=== PATIENT | female | born 1945 | race Caucasian/White ===

== ENCOUNTER → 2019-12-07 11:20 | Outpatient (BNVA) | payer MEDICARE, MEDICAID, SELFPAY | PROVIDERS: PCP Internal Medicine; Visit Provider Orthopaedic Surgery | DX: M75.52 Bursitis of left shoulder (principal); M70.62 Trochanteric bursitis, left hip | CPT/HCPCS: 20610; 99213 ==

== ENCOUNTER 2020-02-27 13:09 | Emergency (ER) | payer MEDICARE, MEDICAID, SELFPAY ==
--- NOTE | 2020-02-27 13:09 | ED_ITS ---
HPI - Extremity Injury (Lower) General Chief Complaint: General Medical Stated Complaint: LOWER LEG LACERATION Time Seen by Provider: 02/27/20 13:09 Source: patient and EMS Mode of arrival: EMS History of Present Illness HPI Narrative: 74-year-old female with a past medical history of asthma, CAD, COPD, DVT, GERD, hypertension, UT, PVD, skin cancer, BIBA for skin tear to right warren s/p window fan falling onto leg [employer]. Patient admits to taking Xarelto. Reports fan was sitting on ground and tipped over hitting leg. Denies falling to ground, head trauma or LOC. Also reports feeling generalized fatigue/weakness since earlier in the week with difficulty catching her breath. Admits to mild SOB at present. Reports right sided lower abdominal pain earlier in the week resolved at present. Denies CP, cough, worsening LE edema, fever, chills, N/V/D/C, lightheadedness/dizziness, [place], dysuria/hematuria Tetanus unknown Related Data Home Medications Medication Instructions Recorded Confirmed acetaminophen 300 mg-codeine 30 mg tab PO 12/02/19 tablet albuterol sulfate 90 mcg/actuation INHALATION 12/02/19 aerosol inhaler clopidogrel 75 mg tablet mg PO 12/02/19 fenofibrate 160 mg tablet mg PO 12/02/19 lisinopril 40 mg tablet mg PO 12/02/19 metoprolol succinate 100 mg mg PO 12/02/19 tablet,extended release 24 hr nifedipine 60 mg tablet,extended mg PO 12/02/19 release omeprazole 20 mg capsule,delayed mg PO 12/02/19 release rosuvastatin 20 mg tablet mg PO 12/02/19 tiotropium bromide 18 mcg capsule INHALATION 12/02/19 with inhalation device Previous Rx's Medication Instructions Recorded zolpidem 5 mg tablet 5 mg PO BEDTIME PRN #30 tab 12/21/19 lorazepam 0.5 mg tablet 0.5 mg PO BID-TID PRN #60 tab 01/18/20 cephalexin [Keflex] 500 mg PO Q6H 7 Days #28 cap 02/27/20 Allergies Allergy/AdvReac Type Severity Reaction Status Date / Time prochlorperazine Allergy Intermediate SWELLING Verified 12/07/19 11:24 [From Compazine] Compazine Allergy Unknown Swelling Uncoded 12/02/19 12:49 Review of Systems Review of Systems: Constitutional: No Weight loss, No Fever, No Chills, + Fatigue, No Malaise ENT/Mouth: No Hearing loss, No Ear Pain, No sore throat Cardiovascular: No Chest Pain, + SOB, + Dyspnea on Exertion, No Orthopnea, +Chronic LE >RLE Respiratory: No Cough, No Sputum Gastrointestinal: No Nausea, No Vomiting, No Diarrhea, No Constipation, + Abdominal pain (resolved) Genitourinary: No irregular bleeding, No Dysuria, No Urinary Frequency, No Hematuria Musculoskeletal: +RLE pain, No Myalgias, No Joint Swelling Skin: No Skin Lesions, No rash Neuro: +Generalized Weakness, No Numbness, No Paresthesias, No Loss of Consciousness, No Dizziness, No Headache Yes all other systems are reviewed and are negative [facility] Past Medical History Attestation statement: The following information was validated with the patient. Medical History (Updated 02/27/20 @ 17:02 by NORRIS Adan) Greater trochanteric bursitis Shoulder bursitis Surgical History History of facial surgery History of toe surgery Family History Family History Father No problems noted. Mother No problems noted. Social History Social History Advance Directives: No Advance Directives Information Provided: Yes Physical Exam Vital Signs: Vital Signs: Last Vital Signs Temp 97.9 F 02/27/20 13:33 Pulse 70 02/27/20 13:33 Resp 16 02/27/20 13:33 BP 122/77 02/27/20 13:33 Pulse Ox 96 02/27/20 13:33 Body Mass Index 25.6 Const: General: cooperative and healthy appearing Orientation/consciousness: patient oriented x3 Limitations: no limitations HENMT: Head: Yes normal to inspection Ears: hearing grossly normal bilat erally General nose exam: Normal external nose present Face and sinus: Yes normal facial exam Mouth: Normal oral and palatal mucosa present Throat: Yes posterior oropharynx normal and Yes uvula midline Eyes: General: appearance normal, both eyes and all related structures Pupils: Equal, round and reactive pupils present EOM: EOMs intact bilaterally Neck: Neck: Yes normal visual inspection and Yes no meningeal signs Resp: Effort & Inspection: normal respiratory effort Auscultation: clear to auscultation bilaterally Cardio: Rate: regular rate Heart sounds: S1 normal heart sound present and S2 normal heart sound present GI: Inspection: Yes normal to inspection Palpation (GI): Soft to palpation, nontender, no guarding and not rigid Skin: Other: 5.0 x6.0 cm skin tear noted to mid-Right tib-fib Rashes: no rashes Neuro: General: patient oriented x3, tone normal, moves all extremities, no meningeal signs, no focal motor deficits and CN's II-XI intact bilaterally Cr anial nerves: Yes Equal, round and reactive pupils present Motor exam (neuro): 5/5 motor strength present throughout Extrem: Other: +RLE pitting edema with mild erythema and warmth (chronic per patient) R ankle with swelling and mild lateral malleolus ttp +bruising noted to R foot 2-4th toes. Nontender. NV intact. FROM intact General: Yes normal to inspection Course Course Course Narrative: * no leukocytosis * BUN elevated at 27 > chronically elevated * Troponin 5.2 > EKG without ischemic changes, unlikely/low concern for ACS, labs otherwise unremarkable * Patient refused COVID-19/influenza/RSV swab * CXR Stable enlargement of the cardiac silhouette. Subsegmental atelectasis at the lung bases * Right foot x-ray unremarkable. Right ankle with cortical thickening on the lateral malleolus. Definite acute fracture is not seen > patient is tender on exam however reports is chronic, and received cortisone shots outpatient in area > due to location of skin tear will not apply split as will cause more harm and unlikely acute fracture * Tib-fib x-ray without fracture * Patient persistently anxious/demanding to be discharged from the emergency department. Will discharge with Keflex for possible early right lower e xtremity cellulitis. Discussed with patient she needs follow-up with wound care in 2 days, as well as her orthopedic doctor and primary care doctor. She verbalized understanding. MDM - Extremity Injury (Lower) MDM Narrative Medical decision making narrative: 74-year-old female with a past medical history of asthma, CAD, COPD, DVT, GERD, hypertension, UT, PVD, skin cancer, BIBA for skin tear to right warren s/p window fan falling onto leg [employer]. Also reports feeling generalized fatigue/weakness since earlier in the week with difficulty catching her breath. On exam VSS, NAD/well appearing, large skin tear noted to RLE, no focal deficits. Bruising noted to right foot with ttp to R ankle. Will clean wound and apply dressing to right warren. Concern for metabolic abnormalities/viral or other infectious etiology causing generalized weakness/SOB vs CHF vs fx. Rule out pneumonia. Lower concern for ACS/PE or dissection. Lower concern for DVT with reported chronic unchanged LE edema. ?early RLE cellulitis Plan: EKG, labs, UA, CXR, COVID-19 testing, x-rays, update tetanus, reassess Lab Data Result diagrams: 02/27/20 15:06 02/27/20 15:06 Labs: Lab Results 02/27/20 02/27/20 02/27/20 Range/Units 15:06 15:06 15:06 WBC 9.2 (4.8-10.8) X10*3/uL RBC 4.07 L (4.20-5.50) X10*6/uL Hgb 12.7 (12.0-16.0) g/dl Hct 38.8 (37-47) % MCV 95.3 (80-98) fL MCH 31.2 (27.0-33.0) pg MCHC 32.7 (31.0-35.0) g/dl RDW 12.2 (11.0-16.0) % Plt Count 243 (160-400) X10*3/uL MPV 9.2 L (9.4-12.3) fL Immature Gran % (Auto) 0.7 H (0.0-0.4) % Neut % (Auto) 59.1 (45-73) % Lymph % (Auto) 26.7 (20-40) % Cooper % (Auto) 10.8 (2-11) % Eos % (Auto) 2.3 (0-4) % Baso % (Auto) 0.4 (0-2) % Lymph # (Auto) 2.5 (1.2-4.9) X10*3/uL Cooper # (Auto) 1.0 (0.1-1.2) X10*3/uL Eos # (Auto) 0.2 (0.0-0.4) X10*3/uL Baso # (Auto) 0.0 (0.0-0.2) X10*3/uL Abs Immat Gran (auto) 0.06 H (0.00-0.03) X10*3/uL Absolute Neuts (auto) 5.5 (2.0-8.3) X10*3/uL Absolute Nucleated RBC 0.000 (0.0-0.012) X10*3/uL Nucleated RBC % (auto) 0.0 (0.0-0.2) /100WBC PT 11.3 (10.8-13.0) SEC INR 1.0 (0.9-1.1) APTT 32.9 (24.1-38.0) SEC Sodium 139 (135-145) mmol/L Potassium 4.4 (3.3-5.1) mmol/l Chloride 107 (96-108) mmol/L Carbon Dioxide 28 (22-29) mmol/L Anion Gap 8 L (12-20) BUN 27 H (9-16) mg/dL Creatinine 0.89 (0.5-1.4) mg/dL Estim Creat Clear Calc 48.5 Estimated GFR > 60 Random Glucose 130 H (60-115) mg/dL Calcium 8.5 (8.4-10.2) mg/dL Magnesium 1.5 L (1.6-2.6) mg/dL Total Bilirubin 0.2 (0.0-1.0) mg/dL Direct Bilirubin < 0.2 (0.0-0.5) mg/dL AST 15 (5-31) U/L ALT 9 (0-31) U/L Alkaline Phosphatase 47 (39-117) U/L Troponin I High Sens (<3.5-17.0) ng/L B-Natriuretic Peptide (<100) pg/mL Total Protein 6.0 L (6.5-8.0) g/dL Albumin 3.6 (3.5-5.0) g/dL Lipase 10 (8-78) U/L 02/27/20 Range/Units 15:06 WBC (4.8-10.8) X10*3/uL RBC (4.20-5.50) X10*6/uL Hgb (12.0-16.0) g/dl Hct (37-47) % MCV (80-98) fL MCH (27.0-33.0) pg MCHC (31.0-35.0) g/dl RDW (11.0-16.0) % Plt Count (160-400) X10*3/uL MPV (9.4-12.3) fL Immature Gran % (Auto) (0.0-0.4) % Neut % (Auto) (45-73) % Lymph % (Auto) (20-40) % Cooper % (Auto) (2-11) % Eos % (Auto) (0-4) % Baso % (Auto) (0-2) % Lymph # (Auto) (1.2-4.9) X10*3/uL Cooper # (Auto) (0.1-1.2) X10*3/uL Eos # (Auto) (0.0-0.4) X10*3/uL Baso # (Auto) (0.0-0.2) X10*3/uL Abs Immat Gran (auto) (0.00-0.03) X10*3/uL Absolute Neuts (auto) (2.0-8.3) X10*3/uL Absolute Nucleated RBC (0.0-0.012) X10*3/uL Nucleated RBC % (auto) (0.0-0.2) /100WBC PT (10.8-13.0) SEC INR (0.9-1.1) APTT (24.1-38.0) SEC Sodium (135-145) mmol/L Potassium (3.3-5.1) mmol/l Chloride (96-108) mmol/L Carbon Dioxide (22-29) mmol/L Anion Gap (12-20) BUN (9-16) mg/dL Creatinine (0.5-1.4) mg/dL Estim Creat Clear Calc Estimated GFR Random Glucose (60-115) mg/dL Calcium (8.4-10.2) mg/dL Magnesium (1.6-2.6) mg/dL Total Bilirubin (0.0-1.0) mg/dL Direct Bilirubin (0.0-0.5) mg/dL AST (5-31) U/L ALT (0-31) U/L Alkaline Phosphatase (39-117) U/L Troponin I High Sens 5.2 (<3.5-17.0) ng/L B-Natriuretic Peptide 81 (<100) pg/mL Total Protein (6.5-8.0) g/dL Albumin (3.5-5.0) g/dL Lipase (8-78) U/L Discharge Plan Discharge Clinical Impression: Skin tear, Weakness Cellulitis Qualifiers: Site of cellulitis: extremity Site of cellulitis of extremity: lower extremity Laterality: right Qualified Code(s): L03.115 - Cellulitis of right lower limb Patient Disposition: Home, Self-Care Instructions: Cellulitis (ED), Skin Tear (ED) Additional Instructions: You have a very large skin tear, you need to see wound clinic in 2 days to have wound readdressed and evaluated You likely have early infection of her right lower extremity, Keflex as an antibiotic, take as prescribed You need to follow-up with orthopedics as your x-ray showed a possible fracture, however likely is old Stay hydrated at Follow-up with her primary care doctor If her symptoms persist or worsen, your leg becomes more swollen, red, fever, increasing weakness return to the ED immediately Prescriptions: New cephalexin [Keflex] 500 mg capsule 500 mg PO Q6H 7 Days Qty: 28 RF: 0 No Action zolpidem 5 mg tablet 5 mg PO BEDTIME PRN (Reason: insomnia) Qty: 30 RF: 5 lorazepam 0.5 mg tablet 0.5 mg PO BID-TID PRN (Reason: agitation) Qty: 60 RF: 5 Referrals: Noman Painting MD [Physician] - 1 week Ignacio Chaidez MD [Primary Care Provider] - 3 days Socorro Sheikh PA [Physician Fireman] - 2 days Interventions: ED Discharge Assessment Last Done: 02/27/20 17:13 Discharge Date/Time: 02/27/20 17:15
[2020-02-27 13:33] VITALS: BP 122/68; BP 122/77; PULSE 70; PULSE 77; RESP 16; TEMP 36.6; O2SAT 96; O2SAT 97; BMI 25.6
--- NOTE | 2020-02-27 13:36 | XR_ITS ---
EXAMINATION: CHEST X-RAY CLINICAL INFORMATION: Weakness COMPARISON: Previous chest x-ray September 2019 TECHNIQUE: AP portable chest FINDINGS: The cardiac silhouette is enlarged but stable. Hilar and mediastinal contours are unremarkable. There is subsegmental atelectasis at the lung bases. The lungs are otherwise clear.. There is no pleural effusion or pneumothorax. There are degenerative changes of the spine. XR/XR foot RT min 3V IMPRESSION: Stable enlargement of the cardiac silhouette. Subsegmental atelectasis at the lung bases. EXAMINATION: Right foot and ankle x-ray CLINICAL INFORMATION: Trauma COMPARISON: Previous right ankle x-ray November 2018 TECHNIQUE: 3 views of the right foot and 3 views of the right ankle FINDINGS: Right foot: Bone alignment is normal. No fracture or dislocation is seen. The joint spaces are normal. There are small calcaneal spurs. Right ankle: There is new cortical thickening along the lateral malleolus questionable for evidence of trauma. A lucent fracture line is is not seen and this may not be acute. The ankle mortise is normal. There is a diffuse soft tissue swelling. IMPRESSION: Right foot: Unremarkable exam. Right ankle: New cortical thickening along the lateral malleolus. Definite acute fracture is not seen. Clinical correlation recommended. EXAMINATION: Right lower leg x-ray CLINICAL INFORMATION: Trauma COMPARISON: None. TECHNIQUE: 2 views of the right lower leg FINDINGS: Bone alignment is normal. No fracture or dislocation is seen in the knee joint is normal. There is evidence of atherosclerotic disease. There are surgical clips in the soft tissues of the medial knee and lower leg. IMPRESSION: No fracture seen.
--- NOTE | 2020-02-27 13:37 | ECG_ITS ---
Test Reason : WEAKNESS Blood Pressure : / mmHG Vent. Rate : 066 BPM Atrial Rate : 066 BPM P-R Int : 156 ms QRS Dur : 102 ms QT Int : 446 ms P-R-T Axes : 034 -47 004 degrees QTc Int : 467 ms Normal sinus rhythm Left anterior fascicular block Nonspecific T wave abnormality Abnormal ECG When compared with ECG of 14-OCT-2016 16:23, Nonspecific T wave abnormality, improved in Anterior leads Referred By: Nikki Young Electronically Signed By:MEGHAN LEE MD
--- NOTE | 2020-02-27 14:21 | XR_ITS ---
EXAMINATION: CHEST X-RAY CLINICAL INFORMATION: Weakness COMPARISON: Previous chest x-ray September 2019 TECHNIQUE: AP portable chest FINDINGS: The cardiac silhouette is enlarged but stable. Hilar and mediastinal contours are unremarkable. There is subsegmental atelectasis at the lung bases. The lungs are otherwise clear.. There is no pleural effusion or pneumothorax. There are degenerative changes of the spine. XR/XR tibia fibula RT 2V IMPRESSION: Stable enlargement of the cardiac silhouette. Subsegmental atelectasis at the lung bases. EXAMINATION: Right foot and ankle x-ray CLINICAL INFORMATION: Trauma COMPARISON: Previous right ankle x-ray November 2018 TECHNIQUE: 3 views of the right foot and 3 views of the right ankle FINDINGS: Right foot: Bone alignment is normal. No fracture or dislocation is seen. The joint spaces are normal. There are small calcaneal spurs. Right ankle: There is new cortical thickening along the lateral malleolus questionable for evidence of trauma. A lucent fracture line is is not seen and this may not be acute. The ankle mortise is normal. There is a diffuse soft tissue swelling. IMPRESSION: Right foot: Unremarkable exam. Right ankle: New cortical thickening along the lateral malleolus. Definite acute fracture is not seen. Clinical correlation recommended. EXAMINATION: Right lower leg x-ray CLINICAL INFORMATION: Trauma COMPARISON: None. TECHNIQUE: 2 views of the right lower leg FINDINGS: Bone alignment is normal. No fracture or dislocation is seen in the knee joint is normal. There is evidence of atherosclerotic disease. There are surgical clips in the soft tissues of the medial knee and lower leg. IMPRESSION: No fracture seen.
[2020-02-27 15:14] LABS: MANUAL DIFF FLAG NO
[2020-02-27 15:19] LABS: Prothrombin Time 11.3 SEC (10.8-13.0)
--- NOTE | 2020-02-27 15:20 | PC.NURSE ---
RN ATTEMPTED TO OBTAIN COVID SWAB, PT BECAME UPSET WHEN SWAB ENTERED LEFTNARES SAID STOP GET IT OUT, DECLINES TO ALLOW TESTING, PA HENOK UPDATED, TEST TO BE CANCELED
[2020-02-27 15:21] LABS: Basophils Percent Auto 0.4 % (0-2); Eosinophils Absolute Auto 0.2 X10*3/uL (0.0-0.4); Eosinophils Percent Auto 2.3 % (0-4); Hematocrit 38.8 % (37-47); Hemoglobin 12.7 g/dl (12.0-16.0); Imm Gran Abs Auto 0.06 X10*3/uL (0.00-0.03); Imm Gran Pct Auto 0.7 % (0.0-0.4); Lymphocytes Absolute Auto 2.5 X10*3/uL (1.2-4.9); Lymphocytes Percent Auto 26.7 % (20-40); Mean Corpuscular HGB Conc 32.7 g/dl (31.0-35.0); Mean Corpuscular Hemoglobin 31.2 pg (27.0-33.0); Mean Corpuscular Volume 95.3 fL (80-98); Mean Platelet Volume 9.2 fL (9.4-12.3); Monocytes Percent Auto 10.8 % (2-11); Neutrophils Absolute Auto 5.5 X10*3/uL (2.0-8.3); Neutrophils Percent Auto 59.1 % (45-73); Partial Thromboplastin Time 32.9 SEC (24.1-38.0); Platelet Count 243 X10*3/uL (160-400); Red Blood Count 4.07 X10*6/uL (4.20-5.50); Red Cell Distribution Width 12.2 % (11.0-16.0); White Blood Count 9.2 X10*3/uL (4.8-10.8)
[2020-02-27 15:44] LABS: Alanine Aminotransferase 9 U/L (0-31); Albumin Level 3.6 g/dL (3.5-5.0); Alkaline Phosphatase 47 U/L (39-117); Anion Gap 8 (12-20); Aspartate Amino Transferase 15 U/L (5-31); Bilirubin Direct < 0.2 mg/dL (0.0-0.5); Bilirubin Total 0.2 mg/dL (0.0-1.0); Blood Urea Nitrogen 27 mg/dL (9-16); Calcium 8.5 mg/dL (8.4-10.2); Carbon Dioxide 28 mmol/L (22-29); Chloride 107 mmol/L (96-108); Creatinine Clr Calc Pharmacy 48.5; Estimated Glomerular Filt Rate > 60; Glucose Random 130 mg/dL (60-115); Lipase 10 U/L (8-78); Magnesium 1.5 mg/dL (1.6-2.6); Potassium 4.4 mmol/l (3.3-5.1); Sodium 139 mmol/L (135-145)
[2020-02-27 15:45] LABS: B Type Natriuretic Peptide 81 pg/mL (<100); Troponin-I High Sensitivity 5.2 ng/L (<3.5-17.0)
--- NOTE | 2020-02-27 17:01 | PC.NURSE ---
pt requesting discharge, states i don't want a cast, dsd c/d/i at present time, rle elevated
== END 2020-02-27 17:15 | disposition home or self-care (01) ==
PROVIDERS: Physician Assistant; Emergency Provider Emergency Medicine; PCP Internal Medicine
DX: S81.811A Laceration without foreign body, right lower leg, initial encounter (principal); L03.115 Cellulitis of right lower limb; M79.604 Pain in right leg; W26.9XXA Contact with unspecified sharp object(s), initial encounter; Y93.01 Activity, walking, marching and hiking; Y92.9 Unspecified place or not applicable; Y99.9 Unspecified external cause status; Z79.01 Long term (current) use of anticoagulants; Z79.899 Other long term (current) drug therapy; Z20.828 Contact with and (suspected) exposure to other viral communicable diseases
CPT/HCPCS: 36415; 71045; 73590; 73600; 73630; 80048; 80076; 83690; 83735; 83880; 84484; 85025; 85610; 85730; 90471; 90715; 93005; 99283; 99284

== ENCOUNTER 2020-03-06 11:12 | Outpatient (REF) | payer MEDICARE, MEDICAID, SELFPAY | END 2020-03-06 11:13 | disposition home or self-care (01) | LOC: HO.LAB 11:12 | PROVIDERS: PCP Internal Medicine; Visit Provider Internal Medicine | DX: Z20.828 Contact with and (suspected) exposure to other viral communicable diseases (principal) | CPT/HCPCS: C9803; U0003 ==

== ENCOUNTER 2020-03-14 08:45 | Outpatient (REF) | payer MEDICARE, MEDICAID, SELFPAY ==
[2020-03-14 10:28] LABS: Basophils Absolute Auto 0.1 X10*3/uL (0.0-0.2); Basophils Percent Auto 0.4 % (0-2); Eosinophils Absolute Auto 0.2 X10*3/uL (0.0-0.4); Eosinophils Percent Auto 1.5 % (0-4); Hematocrit 38.9 % (37-47); Hemoglobin 13.2 g/dl (12.0-16.0); Imm Gran Abs Auto 0.08 X10*3/uL (0.00-0.03); Imm Gran Pct Auto 0.6 % (0.0-0.4); Lymphocytes Absolute Auto 1.7 X10*3/uL (1.2-4.9); Lymphocytes Percent Auto 12.1 % (20-40); MANUAL DIFF FLAG NO; Mean Corpuscular HGB Conc 33.9 g/dl (31.0-35.0); Mean Corpuscular Hemoglobin 32.2 pg (27.0-33.0); Mean Corpuscular Volume 94.9 fL (80-98); Mean Platelet Volume 8.9 fL (9.4-12.3); Monocytes Absolute Auto 1.1 X10*3/uL (0.1-1.2); Monocytes Percent Auto 8.1 % (2-11); Neutrophils Absolute Auto 10.9 X10*3/uL (2.0-8.3); Neutrophils Percent Auto 77.3 % (45-73); Platelet Count 326 X10*3/uL (160-400); Red Cell Distribution Width 12.1 % (11.0-16.0); White Blood Count 14.1 X10*3/uL (4.8-10.8)
[2020-03-14 10:43] LABS: Estimated Average Glucose 163 mg/dL; Hemoglobin A1c % 7.3 %
[2020-03-14 10:55] LABS: Alanine Aminotransferase 12 U/L (0-31); Albumin Level 4.1 g/dL (3.5-5.0); Alkaline Phosphatase 70 U/L (39-117); Anion Gap 12 (12-20); Aspartate Amino Transferase 13 U/L (5-31); Bilirubin Total 0.4 mg/dL (0.0-1.0); Blood Urea Nitrogen 18 mg/dL (9-16); Calcium 10.4 mg/dL (8.4-10.2); Carbon Dioxide 32 mmol/L (22-29); Chloride 100 mmol/L (96-108); Cholesterol 175 mg/dL; Estimated Glomerular Filt Rate > 60; Glucose Fasting 145 mg/dL (60-99); HDL Cholesterol 67 mg/dL; LDL Cholesterol Calculated 87 mg/dl; Potassium 4.8 mmol/l (3.3-5.1); Sodium 139 mmol/L (135-145); Triglycerides 107 mg/dL
== END 2020-03-14 08:46 | disposition home or self-care (01) ==
LOC: HO.LAB 08:45
PROVIDERS: Absent Provider Internal Medicine; PCP Internal Medicine; Visit Provider Orthopaedic Surgery
DX: Z00.00 Encounter for general adult medical examination without abnormal findings (principal); E11.9 Type 2 diabetes mellitus without complications; S81.801A Unspecified open wound, right lower leg, initial encounter; M75.52 Bursitis of left shoulder; M70.62 Trochanteric bursitis, left hip; M25.571 Pain in right ankle and joints of right foot
CPT/HCPCS: 20610; 36415; 80053; 80061; 83036; 85025; 99212; J1100

== ENCOUNTER 2020-03-19 13:36 | Outpatient (RCR) | payer MEDICARE, MEDICAID, SELFPAY | END 2020-04-17 13:32 | disposition home or self-care (01) | LOC: HO.WCC 13:36 | PROVIDERS: Visit Provider Physician Assistant | DX: I87.331 Chronic venous hypertension (idiopathic) with ulcer and inflammation of right lower extremity (principal); L97.811 Non-pressure chronic ulcer of other part of right lower leg limited to breakdown of skin; I50.9 Heart failure, unspecified; I73.9 Peripheral vascular disease, unspecified; I25.10 Atherosclerotic heart disease of native coronary artery without angina pectoris; Z95.828 Presence of other vascular implants and grafts; Z79.01 Long term (current) use of anticoagulants; Z79.82 Long term (current) use of aspirin; Z79.899 Other long term (current) drug therapy | CPT/HCPCS: 11042; 11045 ==

== ENCOUNTER 2020-05-06 10:09 | Outpatient (REF) | payer MEDICARE, MEDICAID, SELFPAY ==
--- NOTE | ~2020-05-06 | MM_ITS ---
EXAMINATION: MM SCREENING DIGITAL BREAST TOMOSYNTHESIS, BILATERAL CLINICAL INFORMATION: Screening. Asymptomatic. The lifetime risk of breast cancer based on the Tyrer-Cuzick Model is 6%. COMPARISON: Mammography: 05/01/2019, 04/19/2018, 04/07/2017, 03/16/2016 TECHNIQUE: Digital breast tomosynthesis is performed in both the craniocaudal and mediolateral oblique views along with computer-aided detection (CAD). Synthesized 2D images are generated from the tomosynthesis. FINDINGS: There are scattered areas of fibroglandular density (ACR BI-RADS breast composition Category b). There are no significant masses, abnormal calcifications, or other abnormalities. Parenchymal pattern is similar to prior studies. There is no developing density. The axilla and skin contours are unremarkable. MM/MM tomosynthesis screening BI IMPRESSION: No mammographic evidence of malignancy. ASSESSMENT: BI-RADS 1: Negative RECOMMENDATION: Routine annual mammography screening. This patient's information was entered into a reminder system with a target due date for their next mammogram.
== END 2020-05-06 10:10 | disposition home or self-care (01) ==
LOC: HO.MAMMO 10:09
PROVIDERS: PCP Internal Medicine; Visit Provider Obstetrics & Gynecology
DX: Z12.31 Encounter for screening mammogram for malignant neoplasm of breast (principal)
CPT/HCPCS: 77063; 77067

== ENCOUNTER → 2020-06-20 09:42 | Outpatient (BNVA) | payer MEDICARE, MEDICAID, SELFPAY | PROVIDERS: PCP Internal Medicine; Visit Provider Orthopaedic Surgery | DX: M70.60 Trochanteric bursitis, unspecified hip (principal); M75.50 Bursitis of unspecified shoulder | CPT/HCPCS: 20610; 99212; J1100 ==

== ENCOUNTER 2020-07-05 15:59 | Outpatient (REF) | payer MEDICARE, MEDICAID, SELFPAY ==
[2020-07-05 17:27] LABS: MANUAL DIFF FLAG NO
[2020-07-05 17:30] LABS: Basophils Absolute Auto 0.1 X10*3/uL (0.0-0.2); Basophils Percent Auto 0.5 % (0-2); Eosinophils Absolute Auto 0.2 X10*3/uL (0.0-0.4); Eosinophils Percent Auto 1.7 % (0-4); Hematocrit 41.8 % (37-47); Hemoglobin 13.9 g/dl (12.0-16.0); Imm Gran Abs Auto 0.06 X10*3/uL (0.00-0.03); Imm Gran Pct Auto 0.5 % (0.0-0.4); Lymphocytes Absolute Auto 3.2 X10*3/uL (1.2-4.9); Lymphocytes Percent Auto 25.7 % (20-40); Mean Corpuscular HGB Conc 33.3 g/dl (31.0-35.0); Mean Corpuscular Hemoglobin 31.2 pg (27.0-33.0); Mean Corpuscular Volume 93.9 fL (80-98); Mean Platelet Volume 9.5 fL (9.4-12.3); Monocytes Absolute Auto 1.2 X10*3/uL (0.1-1.2); Monocytes Percent Auto 9.8 % (2-11); Neutrophils Absolute Auto 7.8 X10*3/uL (2.0-8.3); Neutrophils Percent Auto 61.8 % (45-73); Platelet Count 317 X10*3/uL (160-400); Red Blood Count 4.45 X10*6/uL (4.20-5.50); Red Cell Distribution Width 12.9 % (11.0-16.0); White Blood Count 12.6 X10*3/uL (4.8-10.8)
[2020-07-05 18:00] LABS: Estimated Average Glucose 189 mg/dL; Hemoglobin A1c % 8.2 %
[2020-07-05 18:05] LABS: Alanine Aminotransferase 12 U/L (0-31); Albumin Level 4.5 g/dL (3.5-5.0); Alkaline Phosphatase 46 U/L (39-117); Anion Gap 14 (12-20); Aspartate Amino Transferase 17 U/L (5-31); Bilirubin Total 0.4 mg/dL (0.0-1.0); Blood Urea Nitrogen 21 mg/dL (9-16); Calcium 10.4 mg/dL (8.4-10.2); Carbon Dioxide 28 mmol/L (22-29); Chloride 105 mmol/L (96-108); Cholesterol 150 mg/dL; Estimated Glomerular Filt Rate 53; Glucose Fasting 124 mg/dL (60-99); HDL Cholesterol 61 mg/dL; LDL Cholesterol Calculated 70 mg/dl; Potassium 4.1 mmol/L (3.3-5.1); Sodium 143 mmol/L (135-145); Total Protein 7.3 g/dL (6.5-8.0); Triglycerides 95 mg/dL
== END 2020-07-05 16:00 | disposition home or self-care (01) ==
LOC: HO.LAB 15:59
PROVIDERS: PCP Internal Medicine; Visit Provider Internal Medicine
DX: Z00.00 Encounter for general adult medical examination without abnormal findings (principal); E11.9 Type 2 diabetes mellitus without complications
CPT/HCPCS: 36415; 80053; 80061; 83036; 85025

== ENCOUNTER → 2020-08-26 11:19 | Outpatient (BNVA) | payer MEDICARE, MEDICAID, SELFPAY | PROVIDERS: PCP Internal Medicine; Visit Provider Orthopaedic Surgery | DX: M70.60 Trochanteric bursitis, unspecified hip (principal); M75.50 Bursitis of unspecified shoulder | CPT/HCPCS: 99212 ==

== ENCOUNTER 2020-10-18 11:18 | Emergency (ER) | payer MEDICARE, MEDICAID, SELFPAY ==
[2020-10-18 11:23] VITALS: BP 128/63; PULSE 73; RESP 18; TEMP 36.7; O2SAT 91; BMI 24.7
--- NOTE | 2020-10-18 12:11 | PC.NURSE ---
Pt very agitated about approx 30 min wait time to see provider, requesting cortisone injection, advised the ED is not capable of providing that. Pt advised Mindy, PA will be in shortly, pt states I don't want to see a fucking PA, I want a doctor , advised wait time would be longer, agreeable to PA. Pt declining imaging and blood work, verbalized understanding of leaving AMA.
[2020-10-18] MEDS: oxyCODONE HCl Immed Release 5 MG TABLET PO (12:21)
--- NOTE | 2020-10-18 12:30 | ED_ITS ---
HPI - Extremity Problem General Chief complaint: Extremity Problem Stated complaint: rt ankle pain Time Seen by Provider: 10/18/20 11:59 Source: patient Mode of arrival: ambulatory Limitations: no limitations History of Present Illness HPI Narrative: 75-year-old female with a past medical history of asthma, CAD, COPD, DVT, GERD, hypertension, mi, PVD, skin cancer presenting to the ED with complaints of acute on chronic right ankle pain for the past few weeks worse today. Reports that she is being followed by a vascular surgeon and she just seen him last week and he is not concerned for worsening DVT or any other processes per the patient. She also reports that she followed up with Dr. Davis and she recently had blood work and she does not believe she needs any other blood work. She denies any injuries or recent falls or any fevers, dizziness, headaches, neck pain/stiffness, chest pain, shortness of breath dyspnea on exertion, orthopnea, palpitations, cough or any other symptoms complaints or concerns at this time. Reports that she normally takes Tylenol with codeine although no symptomatic relief. Related Data Home Medications Medication Instructions Recorded Confirmed acetaminophen 300 mg-codeine 30 mg tab PO 12/02/19 03/14/20 tablet albuterol sulfate 90 mcg/actuation INHALATION 12/02/19 03/14/20 aerosol inhaler metoprolol succinate 100 mg mg PO 12/02/19 03/14/20 tablet,extended release 24 hr omeprazole 20 mg capsule,delayed mg PO 12/02/19 03/14/20 release tiotropium bromide 18 mcg capsule INHALATION 12/02/19 03/14/20 with inhalation device budesonide-formoterol HFA 160 INHALATION 03/14/20 03/14/20 mcg-4.5 mcg/actuation aerosol inhaler Previous Rx's Medication Instructions Recorded cephalexin 500 mg capsule (Keflex) 500 mg PO Q6H 7 Days #28 cap 02/27/20 nifedipine 60 mg tablet,extended 60 mg PO DAILY #90 tab 03/04/20 release fenofibrate 160 mg tablet 160 mg PO DAILY 90 Days #90 tab 03/11/20 lorazepam 0.5 mg tablet 0.5 mg PO BID-TID PRN #60 tab 07/03/20 rosuvastatin 20 mg tablet 20 mg PO DAILY #90 tab 07/22/20 lisinopril 40 mg tablet 40 mg PO DAILY #90 tab 08/06/20 alendronate 70 mg tablet (Fosamax) 70 mg PO QWEEK 90 Days #13 tab 09/04/20 zolpidem 5 mg tablet 5 mg PO BEDTIME PRN #30 tab 09/06/20 clopidogrel 75 mg tablet 75 mg PO DAILY #90 tab 09/11/20 oxycodone 5 mg tablet 5 mg PO BID PRN #10 tab 10/18/20 Allergies Allergy/AdvReac Type Severity Reaction Status Date / Time prochlorperazine Allergy Intermediate SWELLING Verified 03/14/20 13:46 [From Compazine] Compazine Allergy Unknown Swelling Uncoded 12/02/19 12:49 Review of Systems Review of Systems: Constitutional : No changes in activity, No lethargy, No recent prior head injury, No agitation, No increased fussiness ENT/Mouth : No Ear Pain, No Nasal discharge/drainage Eyes: No Eye Pain, No Swelling, No Redness, No Foreign Body, No Vision Changes Cardiovascular : No Chest Pain, No SOB Respiratory : No Cough Gastrointestinal : No Nausea, No Vomiting, No abdominal Pain Genitourinary : No Dysuria, No Urinary Frequency, No Urinary Incontinence, No Urgency, No Flank Pain Musculoskeletal : + joint pain/swelling No neck stiffness, No back pain/injury Skin : No lacerations Neuro : No unsteady gait, No Paresthesias, No Loss of Consciousness, No altered mental status, No Headache Yes all other systems are reviewed and are negative [facility] Past Medical History Attestation statement: The following information was validated with the patient. Medical History (Updated 10/18/20 @ 12:38 by NORRIS Malcolm) CAD (coronary artery disease) COPD (chronic obstructive pulmonary disease) Greater trochanteric bursitis Hypertension Myocardial infarct, old Shoulder bursitis Surgical History History of facial surgery History of surgical procedure on eye proper using laser History of toe surgery Family History Family History Father No problems noted. Mother No problems noted. Social History Social History Alcohol intake: never Cigarettes Per Day: 20 Advance Directives: No Advance Directives Information Provided: No Physical Exam Vital Signs: Vital Signs: Last Vital Signs Temp 98.1 F 10/18/20 11:23 Pulse 73 10/18/20 11:23 Resp 18 10/18/20 11:23 BP 128/63 10/18/20 11:23 Pulse Ox 91 L 10/18/20 11:23 Body Mass Index 24.7 vital signs have been reviewed as normal and appeared to be correct. Blood pressure normal. Heart rate normal. Respiration rate normal. Temperature normal. Oxygen saturation normal. Appearance: Alert. Oriented X3. No acute distress. Head: Normal external exam. Normocephalic. Atraumatic. Eyes: PERRLA. EOMI. Conjunctiva and sclera normal. Eyelids normal. ENT: Pharynx normal. Uvula midline. Moist mucous membranes. Neck: Normal inspection. Neck supple. FROM. No adenopathy. No meningeal signs. CVS: Normal heart rate and rhythm. Heart sound normal. Pulses normal throughout. No murmurs/rales/gallops. Respiratory: No respiratory distress. Painless inspiration. Breath sounds normal. No wheezes/rales/rhonchi noted. Chest nontender. No accessory muscle usage noted or decreased air movement noted. Back: Full range of motion noted. No rashes/lesion/induration/fluctuance or signs of infection noted. Skin: Skin warm and dry. Normal skin color. Normal skin turgor. No rashes/lesions/lacerations noted. Extremities: Right lower extremity edematous and erythematous although patient does not have any calf tenderness she has +3 pitting edema. She has full range of motion of all joints no ligamentous laxity is noted. Otherwise all other Extremities exhibit normal range of motion and nontender. Neuro: Oriented X 3. No motor deficit. No sensory deficit. Reflexes normal. Normal steady gait. No focal neuro deficits noted. Vascular: + radial pulses/+ 2 distal pedal pulses/+2 dorsalis pedis b/l. Normal cap refill. No cyanosis noted to upper extremity nails and lower extremity toes nails Course Course Course Narrative: 75-year-old female presenting to the ED with complaints of atraumatic worsening right ankle pain/swelling. Reports that she followed up with vascular surgeon last week and with her primary care and they did blood work and she does not want any blood work or imaging done today. She reports s he is taking Tylenol with codeine and no symptomatic relief asking for stronger pain medications. I explained to her that she will be leaving against medical advice because I do want to do an x-ray, and ultrasound and labs although patient is refusing. Will DC home with instructions to return if any new or worsening symptoms although this would be against medical advice and to follow- up with vascular surgeon and her PCP. Patient understands agrees with this plan. MDM - Extremity (Nontraumatic) Medical Records Attestation: I reviewed the patient's medical records. Discharge Plan Discharge Clinical Impression: Lower extremity edema, Left against medical advice Patient Disposition: Left Against Medical Advice Instructions: Leg Edema (ED) Prescriptions: New oxycodone 5 mg tablet 5 mg PO BID PRN (Reason: pain) Qty: 10 RF: 0 No Action nifedipine 60 mg tablet extended release 60 mg PO DAILY Qty: 90 RF: 8 fenofibrate 160 mg tablet 160 mg PO DAILY 90 Days Qty: 90 RF: 8 lorazepam 0.5 mg tablet 0.5 mg PO BID-TID PRN (Reason: agitation) Qty: 60 RF: 5 rosuvastatin 20 mg tablet 20 mg PO DAILY Qty: 90 RF: 8 lisinopril 40 mg tablet 40 mg PO DAILY Qty: 90 RF: 8 alendronate [Fosamax] 70 mg tablet 70 mg PO QWEEK 90 Days Qty: 13 RF: 2 zolpidem 5 mg tablet 5 mg PO BEDTIME PRN (Reason: insomnia) Qty: 30 RF: 5 clopidogrel 75 mg tablet 75 mg PO DAILY Qty: 90 RF: 8 cephalexin [Keflex] 500 mg capsule 500 mg PO Q6H 7 Days Qty: 28 RF: 0 budesonide-formoterol 160-4.5 mcg/actuation HFA aerosol inhaler inhalation RF: 0 acetaminophen-codeine 300-30 mg tablet PO RF: 0 Spiriva with HandiHaler 18 mcg capsule, w/inhalation device inhalation RF: 0 omeprazole 20 mg capsule,delayed release(DR/EC) PO RF: 0 metoprolol succinate 100 mg tablet extended release 24 hr PO RF: 0 albuterol sulfate 90 mcg/actuation HFA aerosol inhaler inhalation RF: 0 Referrals: Ignacio Chaidez MD [Primary Care Provider] - 2 days Interventions: ED Discharge Assessment Last Done: 10/18/20 12:34 Discharge Date/Time: 10/18/20 12:34
== END 2020-10-18 12:34 | disposition left against medical advice (07) ==
PROVIDERS: Emergency Provider Emergency Medicine; PCP Internal Medicine
DX: R60.0 Localized edema (principal)
CPT/HCPCS: 99283

== ENCOUNTER → 2020-10-28 10:11 | Outpatient (BNVA) | payer MEDICARE, MEDICAID, SELFPAY | PROVIDERS: Visit Provider Orthopaedic Surgery | DX: M70.62 Trochanteric bursitis, left hip (principal); M75.52 Bursitis of left shoulder | CPT/HCPCS: 20610; 99212; J1100 ==

== ENCOUNTER → 2020-12-10 09:55 | Outpatient (BNVA) | payer MEDICARE, MEDICAID, SELFPAY | PROVIDERS: Visit Provider Obstetrics & Gynecology ==

== ENCOUNTER → 2021-01-23 13:17 | Outpatient (BNVA) | payer MEDICARE, MEDICAID, SELFPAY | PROVIDERS: Visit Provider Orthopaedic Surgery | DX: M70.60 Trochanteric bursitis, unspecified hip (principal); M75.50 Bursitis of unspecified shoulder | CPT/HCPCS: 20610; 99212; J1040 ==

== ENCOUNTER 2021-02-04 09:20 | Outpatient (REF) | payer MEDICARE, MEDICAID, SELFPAY ==
[2021-02-04 09:43] LABS: MANUAL DIFF FLAG NO
[2021-02-04 10:24] LABS: Basophils Absolute Auto 0.1 X10*3/uL (0.0-0.2); Basophils Percent Auto 0.5 % (0-2); Eosinophils Absolute Auto 0.3 X10*3/uL (0.0-0.4); Eosinophils Percent Auto 2.1 % (0-4); Hematocrit 42.8 % (37.0-47.0); Hemoglobin 14.3 g/dl (12.0-16.0); Imm Gran Abs Auto 0.14 X10*3/uL (0.00-0.03); Imm Gran Pct Auto 0.9 % (0.0-0.4); Lymphocytes Percent Auto 26.7 % (20-40); Mean Corpuscular HGB Conc 33.4 g/dl (31.0-35.0); Mean Corpuscular Hemoglobin 32.4 pg (27.0-33.0); Mean Corpuscular Volume 96.8 fL (80.0-98.0); Mean Platelet Volume 9.4 fL (9.4-12.3); Monocytes Absolute Auto 1.3 X10*3/uL (0.1-1.2); Monocytes Percent Auto 8.4 % (2-11); Neutrophils Absolute Auto 9.1 x10*3/uL (2.0-8.3); Neutrophils Percent Auto 61.4 % (45-73); Platelet Count 324 X10*3/uL (160-400); Red Blood Count 4.42 X10*6/uL (4.20-5.50); Red Cell Distribution Width 12.3 % (11.0-16.0); White Blood Count 14.8 X10*3/uL (4.8-10.8)
[2021-02-04 10:31] LABS: Estimated Average Glucose 169 mg/dL; Hemoglobin A1c % 7.5 %
[2021-02-04 10:53] LABS: Alanine Aminotransferase 17 U/L (0-31); Albumin Level 4.2 g/dL (3.5-5.0); Alkaline Phosphatase 51 U/L (39-117); Anion Gap 12 (12-20); Aspartate Amino Transferase 18 U/L (5-31); Bilirubin Total 0.4 mg/dL (0.0-1.0); Blood Urea Nitrogen 17 mg/dL (9-16); Carbon Dioxide 31 mmol/L (22-29); Chloride 101 mmol/L (96-108); Cholesterol 175 mg/dL; Estimated Glomerular Filt Rate > 60; Glucose Fasting 130 mg/dL (60-99); HDL Cholesterol 69 mg/dL; LDL Cholesterol Calculated 89 mg/dl; Potassium 4.3 mmol/L (3.3-5.1); Sodium 140 mmol/L (135-145); Triglycerides 86 mg/dL
== END 2021-02-04 09:21 | disposition home or self-care (01) ==
LOC: HO.LAB 09:20
PROVIDERS: PCP Internal Medicine; Visit Provider Internal Medicine
DX: Z00.00 Encounter for general adult medical examination without abnormal findings (principal); E11.9 Type 2 diabetes mellitus without complications
CPT/HCPCS: 36415; 80053; 80061; 83036; 85025

== ENCOUNTER 2021-05-08 10:05 | Outpatient (REF) | payer MEDICARE, MEDICAID, SELFPAY ==
--- NOTE | ~2021-05-08 | MM_ITS ---
EXAMINATION: MM SCREENING DIGITAL BREAST TOMOSYNTHESIS, BILATERAL CLINICAL INFORMATION: Screening. Asymptomatic. The lifetime risk of breast cancer based on the Tyrer-Cuzick Model is 4%. COMPARISON: Mammography: 05/06/2020, 05/01/2019, 04/19/2018 TECHNIQUE: Digital breast tomosynthesis is performed in both the craniocaudal and mediolateral oblique views along with computer-aided detection (CAD). Synthesized 2D images are generated from the tomosynthesis. FINDINGS: There are scattered areas of fibroglandular density (ACR BI-RADS breast composition Category b). There are no significant masses, abnormal calcifications, or other abnormalities. Parenchymal pattern is similar to prior studies. There are no significant changes. MM/MM tomosynthesis screening BI IMPRESSION: No mammographic evidence of malignancy. ASSESSMENT: BI-RADS 1: Negative RECOMMENDATION: Routine annual mammography screening. This patient's information was entered into a reminder system with a target due date for their next mammogram.
== END 2021-05-08 10:06 | disposition home or self-care (01) ==
LOC: HO.MAMMO 10:05
PROVIDERS: PCP Internal Medicine; Visit Provider Internal Medicine
DX: Z12.31 Encounter for screening mammogram for malignant neoplasm of breast (principal)
CPT/HCPCS: 77063; 77067

== ENCOUNTER 2021-06-09 16:29 | Inpatient (IN) | payer MEDICARE, MEDICAID, SELFPAY ==
[2021-06-09] VITALS (25 sets, daily range): BP systolic 74–151; BP diastolic 48–95; PULSE 99–166; RESP 10–36; TEMP 34.8–36.6; O2SAT 82–100; BMI 24.7; BMI 26.8
--- NOTE | ~2021-06-09 | CT_ITS ---
EXAMINATION: CT ANGIOGRAM OF THE CHEST WITH AND WITHOUT CONTRAST (CT PULMONARY ANGIOGRAM FOR PE) CLINICAL INFORMATION: r/o PE, covid + COMPARISON: 03/04/2017 TECHNIQUE: Prior to contrast administration, noncontrast localization images were obtained. Subsequently, multidetector volumetric imaging was performed from the thoracic inlet to below the diaphragms following the administration of 80 mL Omnipaque 350 intravenous contrast. No contrast reaction reported Sagittal, coronal, and MIP oblique sagittal reformatted images were obtained on the CT workstation, uploaded to PACS, and reviewed. This CT examination was performed using dose optimization techniques as appropriate, variously including the following: *Automated exposure control *Adjustment of mA and/or kV according to patient size (this includes techniques or standardized protocols for targeted exams where dose is matched to indication/reason for exam; i.e. extremities or head) *Use of iterative reconstruction technique FINDINGS: QUALITY OF STUDY/CONTRAST BOLUS: Satisfactory. PULMONARY ARTERIES: There is a pulmonary embolus in the left lower lobe pulmonary artery, for example image [id number]. THORACIC AORTA: No aneurysm or dissection. LUNG: New from the prior study there is diffuse interstitial thickening superimposed on a background of emphysema which is progressed since 2017. There are patchy areas of largely peripheral consolidation. PLEURA: There is trapped fluid in the superior aspect of the right major fissure with adjacent atelectasis. Small bilateral pleural effusions are seen at the lung bases. MEDIASTINUM: Mild cardiomegaly. Coronary artery calcification. Numerous prominent mediastinal lymph nodes, possibly reactive. No evidence of septal bowing or right heart strain. There is left hilar lymphadenopathy measuring 2.0 x 1.4 cm. CHEST WALL/AXILLA: No axillary or internal mammary lymphadenopathy. OSSEOUS STRUCTURES: No acute or suspicious osseous abnormality. UPPER ABDOMEN: No adrenal mass. No reflux of contrast into the hepatic veins to suggest elevated right heart pressures. CT/CT angio chest PE protocol IMPRESSION: Small pulmonary embolus seen to a left lower lobe pulmonary artery. New diffuse interstitial opacity. Although pulmonary edema could give this appearance, favor interstitial pneumonitis. There is left hilar lymphadenopathy measuring 2.0 x 1.4 cm, possibly reactive. Small bilateral pleural effusions with fluid trapped in the right major fissure. VTE: positive This critical result was discussed with Sherri PISANO by telephone at 06/09/2021 10:48 PM and it was ascertained that the content and urgency of the report was understood at the time of direct communication.
--- NOTE | ~2021-06-09 | XR_ITS ---
EXAMINATION: XR CHEST CLINICAL INFORMATION: Triple-lumen catheter placement COMPARISON: Chest radiograph earlier this evening at 5:44 PM TECHNIQUE: Frontal view of the chest was obtained. FINDINGS: The left IJ triple-lumen catheter has been placed with its tip in the SVC. ET tube is also in place with its tip 1 cm above mateus and probably should be pulled back. Patchy densities throughout both lungs unchanged. XR/XR chest 1V IMPRESSION: Left IJ catheter placed without complication. ET tube 1 cm above the mateus and should be pulled back
--- NOTE | ~2021-06-09 | XR_ITS ---
EXAMINATION: XR CHEST CLINICAL INFORMATION: Chest pain. Shortness of breath. Low O2 saturation. COMPARISON: Chest x-ray 02/27/2020 TECHNIQUE: Frontal portable view of the chest was obtained. 5:44 PM FINDINGS: Moderate volume bilateral pleural effusions opacifying both lung bases. Basilar consolidation atelectasis may be present as well. Central hilar pulmonary vessels mildly prominent but no overt pulmonary edema. XR/XR chest 1V IMPRESSION: Pulmonary vascular congestion with bilateral pleural effusions. Bibasilar consolidation or atelectasis may be present as well.
--- NOTE | ~2021-06-09 | XR_ITS ---
EXAMINATION: XR CHEST CLINICAL INFORMATION: Confirm OG tube and endotracheal tube COMPARISON: 06/09/2021 TECHNIQUE: Frontal view of the chest was obtained. FINDINGS: Endotracheal tube tip lies approximately 4 cm above the mateus. Enteric tube courses into the stomach. Left IJ central line tip lies in the region of the mid SVC. Lung volumes are symmetric. Heterogeneous regions of opacity towards the bilateral lung bases are redemonstrated. Redemonstrated upper lobe predominant emphysema. No appreciable pneumothorax. Small pleural effusions noted. The cardiomediastinal silhouette is stable. Calcification is present at the aortic arch. Degenerative changes are noted in the spine. XR/XR chest 1V IMPRESSION: Endotracheal tube tip approximately 4 cm above the mateus. Enteric tube courses into the stomach. Redemonstrated heterogeneous bibasilar opacities and small pleural effusions.
--- NOTE | 2021-06-09 16:56 | ECG_ITS ---
Test Reason : sob/cp Blood Pressure : / mmHG Vent. Rate : 113 BPM Atrial Rate : 113 BPM P-R Int : 136 ms QRS Dur : 126 ms QT Int : 370 ms P-R-T Axes : 069 -26 082 degrees QTc Int : 507 ms Sinus tachycardia with Fusion complexes Possible Left atrial enlargement Left ventricular hypertrophy with QRS widening ( Antonino product ) ST more depressed Anterolateral leads s/o ischemia Abnormal ECG When compared with ECG of 27-FEB-2020 14:15, Significant changes have occurred Referred By: Komal Malave Electronically Signed By:MEGHAN LEE MD
[2021-06-09 17:31] LABS: MANUAL DIFF FLAG NO
[2021-06-09 17:32] LABS: Basophils Absolute Auto 0.1 X10*3/uL (0.0-0.2); Basophils Percent Auto 0.5 % (0-2); Eosinophils Absolute Auto 0.3 X10*3/uL (0.0-0.4); Eosinophils Percent Auto 1.7 % (0-4); Hematocrit 39.3 % (37.0-47.0); Hemoglobin 12.6 g/dl (12.0-16.0); Imm Gran Abs Auto 0.07 X10*3/uL (0.00-0.03); Imm Gran Pct Auto 0.5 % (0.0-0.4); Lymphocytes Absolute Auto 2.7 X10*3/uL (1.2-4.9); Lymphocytes Percent Auto 17.9 % (20-40); Mean Corpuscular HGB Conc 32.1 g/dl (31.0-35.0); Mean Corpuscular Hemoglobin 30.6 pg (27.0-33.0); Mean Corpuscular Volume 95.4 fL (80.0-98.0); Mean Platelet Volume 9.1 fL (9.4-12.3); Monocytes Absolute Auto 1.5 X10*3/uL (0.1-1.2); Neutrophils Absolute Auto 10.4 x10*3/uL (2.0-8.3); Neutrophils Percent Auto 69.4 % (45-73); Platelet Count 357 X10*3/uL (160-400); Red Blood Count 4.12 X10*6/uL (4.20-5.50); Red Cell Distribution Width 12.3 % (11.0-16.0)
--- NOTE | 2021-06-09 17:32 | ED.SOB ---
HPI - SOB/Dyspnea General Chief Complaint: Dyspnea Stated Complaint: low oxygen pt came from doc office Time Seen by Provider: 06/09/21 17:11 Source: patient Mode of arrival: wheelchair Limitations: no limitations History of Present Illness HPI Narrative: Patient comes to the emergency room complaining of shortness of breath. Patient states it started approximately a month ago. Patient states that today she went to see her physician assistant, oxygen saturation was in the 70s. On arrival to triage, patient's oxygen saturation was in the mid 80s. Patient is not oxygen dependent at home. Patient does have history of COPD and asthma. Patient states that her inhaler has not been a sufficient as it used to be. Also, patient noticed that her legs are more swollen than usual Related Data Home Medications Medication Instructions Recorded Confirmed acetaminophen 300 mg-codeine 30 mg 1 tab PO BID PRN 12/02/19 06/09/21 tablet metoprolol succinate 100 mg 100 mg PO DAILY 12/02/19 06/09/21 tablet,extended release 24 hr tiotropium bromide 18 mcg capsule 1 cap INHALATION DAILY 12/02/19 06/09/21 with inhalation device budesonide-formoterol HFA 160 2 puff INHALATION BID 03/14/20 06/09/21 mcg-4.5 mcg/actuation aerosol inhaler omeprazole 20 mg capsule,delayed 1 cap PO DAILY 06/09/21 06/09/21 release Previous Rx's Medication Instructions Recorded rosuvastatin 20 mg tablet 20 mg PO DAILY #90 tab 07/22/20 lisinopril 40 mg tablet 40 mg PO DAILY #90 tab 08/06/20 clopidogrel 75 mg tablet 75 mg PO DAILY #90 tab 12/12/20 lorazepam 0.5 mg tablet 0.5 mg PO BID-TID PRN #90 tab 01/01/21 zolpidem 5 mg tablet 5 mg PO BEDTIME PRN #30 tab 02/21/21 fenofibrate 160 mg tablet 160 mg PO DAILY 90 Days #90 tab 03/03/21 alendronate 70 mg tablet (Fosamax) 70 mg PO QWEEK #13 tab 05/06/21 nifedipine 60 mg tablet,extended 60 mg PO DAILY #90 tab 06/05/21 release Allergies Allergy/AdvReac Type Severity Reaction Status Date / Time prochlorperazine Allergy Intermediate SWELLING Verified 12/10/20 10:13 [From Compazine] Compazine Allergy Unknown Swelling Uncoded 10/28/20 10:14 Review of Systems Review of Systems: Constitutional : No Weight loss, No Fever, No Chills, No Night Sweats, No Fatigue, No Malaise ENT/Mouth : No Hearing loss, No Ear Pain, No Nasal Congestion, No Sinus Pain, No Hoarseness, No sore throat, No Rhinorrhea, No Swallowing Difficulty Eyes: No Eye Pain, No Swelling, No Redness, No Foreign Body, No Discharge, No Vision Changes Cardiovascular : No Chest Pain, complaining of orthopnea, increased bilateral lower extremity swelling Respiratory : No Cough, No Sputum, complaining of wheezing and shortness of breath Gastrointestinal : No Nausea, No Vomiting, No Diarrhea, No Constipation, No abdominal Pain, No Hematochezia, No Melena Genitourinary : no irregular bleeding, No Dysuria, No Urinary Frequency, No Hematuria, No Urinary Incontinence, No Urgency, No Flank Pain, No Urinary Flow Changes, No Hesitancy Musculoskeletal : No joint pain, No Myalgias, No Joint Swelling Skin : Chronic leg swelling with fluid oozing Neuro : No Weakness, No Numbness, No Paresthesias, No Loss of Consciousness, No Dizziness, No Headache Psych : No Anxiety/Panic, No Depression, No SI/HI/AH/VH, No Social Issues, Heme/Lymph: No Bruising, No Bleeding,No Lymphadenopathy Endocrine : No Polyuria, No Polydipsia, No Temperature Intolerance [facility] Past Medical History Medical History CAD (coronary artery disease) COPD (chronic obstructive pulmonary disease) Greater trochanteric bursitis Hypertension Myocardial infarct, old Shoulder bursitis Surgical History History of facial surgery History of surgical procedure on eye proper using laser History of toe surgery Family History Family History Father No problems noted. Mother No problems noted. Social History Social History Alcohol intake: never Patient Tobacco Use Status: Current everyday Tobacco user Cigarettes Per Day: 20 Use of substances other than those prescribed or required for medical reasons: No Advance Directives: No Advance Directives Information Provided: No Physical Exam Vital Signs: Vital Signs: Last Vital Signs Temp 97.9 F 06/09/21 16:51 Pulse 128 H 06/09/21 21:11 Resp 18 06/09/21 21:11 BP 138/77 06/09/21 21:11 Pulse Ox 96 06/09/21 21:11 BMI result Body Mass Index 26.8 Const: Other: Appearance: Alert. Oriented X3. No acute distress. Eyes: Pupils equal, round and reactive to light. ENT: Pharynx normal. Neck: Normal inspection. Neck supple. No lymph nodes noted. No crepitus CVS: Tachycardic, heart rate in the 120s, regular rhythm. Pulses normal. Normal S1 and S2 Respiratory: Oxygen saturation on room air 90%, after talking or slight movement, oxygen saturation drops to 85%, decreased air movement, wheezing Abdomen: Soft and nontender. No rigidity. No distention. Skin: Skin warm and dry. Lower extremity chronic pitting edema, weeping Extremities: See above, No Rash Neuro: Oriented X 3. No motor deficit. No sensory deficit. Moving all extremities. No slurred speech. CN 2 through 12 grossly intact Psych: calm, cooperative, normal affect Course Course Course Narrative: In triage, oxygen saturation was 82%. Patient is wheezing, at this time is unclear if she has a COPD exacerbation versus CHF. Patient is now receiving Solu-Medrol, Xopenex since she is tachycardic, and 1 dose of Lasix IV. I discussed the labs and EKG with the patient. Patient has new onset CHF, NSTEMI, also tested positive for COVID despite being immunized After having an extensive discussion with the patient, she grudgingly accepted to be admitted to the hospital Patient's oxygen saturation is approximately 90-92% on 6 L nasal cannula CTA pending. We attempted to do a CT/CTA but the patient refused to lay down flat. Patient is already on heparin for the NSTEMI. Patient was previously on Plavix, unlikely to be a PE. Chest x-ray shows possible consolidation. We will empirically treat patient with azithromycin and ceftriaxone I discussed the patient with Dr. Cullen, pt being admitted Patient started to become significantly short of breath, then at altered, oxygen saturation dropped to the low 80s on 15 L/non-rebreather. Patient had to be intubated Patient is on propofol and Levophed I discussed the patient with Dr. Dobson. We did a posterior EKG, at this time no signs of posterior STEMI. Troponin 2. Pending. Wants to have the 2nd troponin, we will decide if patient is to be transferred or admitted to intensive care unit. Sign-out given to Dr. Dale MDM - SOB/Dyspnea Lab Data Result diagrams: 06/09/21 17:26 06/09/21 17:26 Labs: Lab Results 06/09/21 06/09/21 06/09/21 Range/Units 17:26 17:26 17:26 WBC 15.0 H (4.8-10.8) X10*3/uL RBC 4.12 L (4.20-5.50) X10*6/uL Hgb 12.6 (12.0-16.0) g/dl Hct 39.3 (37.0-47.0) % MCV 95.4 (80.0-98.0) fL MCH 30.6 (27.0-33.0) pg MCHC 32.1 (31.0-35.0) g/dl RDW 12.3 (11.0-16.0) % Plt Count 357 (160-400) X10*3/uL MPV 9.1 L (9.4-12.3) fL Immature Gran % (Auto) 0.5 H (0.0-0.4) % Neut % (Auto) 69.4 (45-73) % Lymph % (Auto) 17.9 L (20-40) % Elliott % (Auto) 10.0 (2-11) % Eos % (Auto) 1.7 (0-4) % Baso % (Auto) 0.5 (0-2) % Lymph # (Auto) 2.7 (1.2-4.9) X10*3/uL Elliott # (Auto) 1.5 H (0.1-1.2) X10*3/uL Eos # (Auto) 0.3 (0.0-0.4) X10*3/uL Baso # (Auto) 0.1 (0.0-0.2) X10*3/uL Abs Immat Gran (auto) 0.07 H (0.00-0.03) X10*3/uL Absolute Neuts (auto) 10.4 H (2.0-8.3) x10*3/uL Absolute Nucleated RBC 0.000 (0.0-0.012) X10*3/uL Nucleated RBC % (auto) 0.0 (0.0-0.2) /100WBC PT (9.9-13.0) SEC INR (0.9-1.1) Sodium 138 (135-145) mmol/L Potassium 4.1 (3.3-5.1) mmol/L Chloride 103 (96-108) mmol/L Carbon Dioxide 27 (22-29) mmol/L Anion Gap 12 (12-20) BUN 16 (9-16) mg/dL Creatinine 1.02 (0.5-1.4) mg/dL Estim Creat Clear Calc 42.1 Estimated GFR 53 Random Glucose 181 H (60-115) mg/dL Lactic Acid (0.5-2.0) mmol/L Calcium 9.3 D (8.4-10.2) mg/dL Troponin I High Sens 2231.0 H* (<3.5-17.0) ng/L B-Natriuretic Peptide 836 H (<100) pg/mL COVID-19 (DELFINO) (Negative) COVID-19 Clin Com 06/09/21 06/09/21 06/09/21 Range/Units 17:32 17:32 17:32 WBC (4.8-10.8) X10*3/uL RBC (4.20-5.50) X10*6/uL Hgb (12.0-16.0) g/dl Hct (37.0-47.0) % MCV (80.0-98.0) fL MCH (27.0-33.0) pg MCHC (31.0-35.0) g/dl RDW (11.0-16.0) % Plt Count (160-400) X10*3/uL MPV (9.4-12.3) fL Immature Gran % (Auto) (0.0-0.4) % Neut % (Auto) (45-73) % Lymph % (Auto) (20-40) % Elliott % (Auto) (2-11) % Eos % (Auto) (0-4) % Baso % (Auto) (0-2) % Lymph # (Auto) (1.2-4.9) X10*3/uL Elliott # (Auto) (0.1-1.2) X10*3/uL Eos # (Auto) (0.0-0.4) X10*3/uL Baso # (Auto) (0.0-0.2) X10*3/uL Abs Immat Gran (auto) (0.00-0.03) X10*3/uL Absolute Neuts (auto) (2.0-8.3) x10*3/uL Absolute Nucleated RBC (0.0-0.012) X10*3/uL Nucleated RBC % (auto) (0.0-0.2) /100WBC PT 13.4 H (9.9-13.0) SEC INR 1.2 H (0.9-1.1) Sodium (135-145) mmol/L Potassium (3.3-5.1) mmol/L Chloride (96-108) mmol/L Carbon Dioxide (22-29) mmol/L Anion Gap (12-20) BUN (9-16) mg/dL Creatinine (0.5-1.4) mg/dL Estim Creat Clear Calc Estimated GFR Random Glucose (60-115) mg/dL Lactic Acid 1.6 (0.5-2.0) mmol/L Calcium (8.4-10.2) mg/dL Troponin I High Sens (<3.5-17.0) ng/L B-Natriuretic Peptide (<100) pg/mL COVID-19 (DELFINO) Positive A (Negative) COVID-19 Clin Com See Note Procedures Intubation Time out performed: Yes sedative: Etomidate Mg Given: 20 paralytic: Rocuronium Mg Given: 100 Laryngoscope: other (glydescope) ET Tube Size: 7.5 ET Tube Uncuffed: Yes Tube Secured Depth (cm): 23 Tube Secured Location: lips Tube Placement Confirmation: visualized tube passing through cords, equal breath sounds bilaterally, no breath sounds over epigastrium and confirmation by capnometry Patient Tolerated Procedure: well Intubation Complications: none Critical Care Time Critical Care Time Critical Care Time: Yes Total Critical Care Time: 120 Attestation: I have personally provided critical care time. Time includes review of lab data, radiology results, discussion with consultants, and monitoring for potential decompensation. Intervention performed as documented. Discharge Plan Discharge Clinical Impression: COVID-19, New onset of congestive heart failure, Non-ST elevation VT (NSTEMI) Patient Disposition: Admitted As Inpatient
[2021-06-09] MEDS: Furosemide 40 MG/4 ML VIAL IVPUSH (17:35)
[2021-06-09] MEDS: methylPREDNISolone Sod Succ 125 MG/2 ML VIAL IVPUSH (17:35)
[2021-06-09 17:46] LABS: INTERNATIONAL NORM RATIO 1.2 (0.9-1.1); Prothrombin Time 13.4 SEC (9.9-13.0)
[2021-06-09 17:47] LABS: Anion Gap 12 (12-20); Blood Urea Nitrogen 16 mg/dL (9-16); Calcium 9.3 mg/dL (8.4-10.2); Carbon Dioxide 27 mmol/L (22-29); Chloride 103 mmol/L (96-108); Creatinine Clr Calc Pharmacy 42.1; Estimated Glomerular Filt Rate 53; Glucose Random 181 mg/dL (60-115); Potassium 4.1 mmol/L (3.3-5.1); Sodium 138 mmol/L (135-145)
[2021-06-09 17:48] LABS: COVID-19 Test Positive (Negative); IDNOW Serial# 16C4AD1C
[2021-06-09] MEDS: Nicotine 21 MG PATCH.TD24 TRANSDERMA (17:48)
[2021-06-09 17:49] LABS: Lactic Acid 1.6 mmol/L (0.5-2.0)
[2021-06-09 18:11] LABS: B Type Natriuretic Peptide 836 pg/mL (<100)
--- NOTE | 2021-06-09 18:29 | PC.NURSE ---
pt incontinent of urine, pt got extremely sob with minim movement at this time, pt desated down to the lower 86% on 2l pt increased on the oxygen to 5l and sating at 95%, breathing anywhere from 26-30 at this time, and hr rate at 133
--- NOTE | 2021-06-09 19:25 | PHA.MEDREC ---
Pharmacy Consult ? Medication Reconciliation Pharmacy has completed the medication reconciliation. Med rec completed using pharmacy history and MD office Thanks Abdullahi
--- NOTE | 2021-06-09 19:26 | PC.NURSE ---
pt has increased WOB, was on 6L NC switched to NRB. MD called to bedside. RT paged to bedside. no pumps available to start heparin drip at this time. ED techs asked for assistance in finding pumps
[2021-06-09] MEDS: Heparin Sodium,Porcine 5,000 UNIT/ML VIAL 4000 UNIT IVPUSH (19:28)
--- NOTE | 2021-06-09 19:32 | PC.NURSE ---
MD and RT at bedside to intubate
--- NOTE | 2021-06-09 19:48 | ECG_ITS ---
Test Reason : REPEAT EKG Blood Pressure : / mmHG Vent. Rate : 122 BPM Atrial Rate : 122 BPM P-R Int : 140 ms QRS Dur : 124 ms QT Int : 334 ms P-R-T Axes : 075 -49 117 degrees QTc Int : 475 ms Sinus tachycardia Left axis deviation Non-specific intra-ventricular conduction delay ST & T wave abnormality, consider lateral ischemia Abnormal ECG When compared with ECG of 09-JUN-2021 19:43, ST now depressed in Anterior leads T wave inversion now evident in Anterior leads Referred By: Komal Malave Electronically Signed By:MEGHAN LEE MD
[2021-06-09] MEDS: propofoL 1,000 MG/100 ML VIAL 12.35 MG IVCONT (19:51)
--- NOTE | 2021-06-09 20:07 | PC.NURSE ---
ICU provider at bedside. states to decrease propofol from 30 to 15 due to low BP new orders to follow
--- NOTE | 2021-06-09 20:14 | ECG_ITS ---
Test Reason : REPEAT Blood Pressure : / mmHG Vent. Rate : 133 BPM Atrial Rate : 133 BPM P-R Int : 140 ms QRS Dur : 128 ms QT Int : 350 ms P-R-T Axes : 080 -50 111 degrees QTc Int : 520 ms Sinus tachycardia Possible Left atrial enlargement Left axis deviation Left ventricular hypertrophy with QRS widening and repolarization abnormality ( [place] product ) ST more depressed Anterolateral leads Abnormal ECG When compared with ECG of 09-JUN-2021 16:57, ST more depressed Anterolateral leads T wave inversion now evident in Lateral leads Referred By: Komal Malave Electronically Signed By:MEGHAN LEE MD
--- NOTE | 2021-06-09 20:15 | ECG_ITS ---
Test Reason : posterior stemi? Blood Pressure : / mmHG Vent. Rate : 092 BPM Atrial Rate : 092 BPM P-R Int : 138 ms QRS Dur : 126 ms QT Int : 404 ms P-R-T Axes : 064 -51 -34 degrees QTc Int : 499 ms Normal sinus rhythm Left axis deviation Non-specific intra-ventricular conduction block Minimal voltage criteria for LVH, may be normal variant ( Antonino product ) T wave abnormality, consider anterolateral ischemia Abnormal ECG When compared to the previous EKG of ST more depressed Anterolateral leads Referred By: Komal Malave Electronically Signed By:MEGHAN LEE MD
[2021-06-09] MEDS: Heparin Sodium,Porcine/1/2NS 25,000 UNIT/250 ML IV.SOLN 9.6 UNIT IVCONT (20:19)
--- NOTE | 2021-06-09 20:23 | PC.NURSE ---
2nd line placed by this RN Heparin started per protocol
--- NOTE | 2021-06-09 20:28 | PC.NURSE ---
levophed started at 0.05 per protocol ICU provider at bedside, per ICU provider increase rate to 0.07
--- NOTE | 2021-06-09 20:30 | PC.NURSE ---
per ICU provider increase levophed to 0.1 mcg/kg/min
--- NOTE | 2021-06-09 20:35 | PC.NURSE ---
per ICU provider decrease Levo to 0.08 mcg/kg/min
--- NOTE | 2021-06-09 20:42 | PC.NURSE ---
per ICU provider decrease Levophed to 0.06 mcg/kg/min
--- NOTE | 2021-06-09 21:20 | ECG_ITS ---
Test Reason : REPEAT EKG Blood Pressure : / mmHG Vent. Rate : 122 BPM Atrial Rate : 122 BPM P-R Int : 142 ms QRS Dur : 126 ms QT Int : 346 ms P-R-T Axes : 070 -55 110 degrees QTc Int : 493 ms Sinus tachycardia Left axis deviation Non-specific intra-ventricular conduction block Minimal voltage criteria for LVH, may be normal variant ( Antonino product ) T wave abnormality, consider lateral ischemia Abnormal ECG When compared with ECG of 09-JUN-2021 20:12, ST no longer depressed in Anterior leads ST now depressed in Lateral leads T wave inversion no longer evident in Anterior leads Referred By: Komal Malave Electronically Signed By:MEGHAN LEE MD
[2021-06-09 21:27] LABS: PTT Heparin Drip 96.6 SEC (53-77.9)
[2021-06-09 21:35] LABS: Appearance Urine CLEAR; Color Urine YELLOW; Glucose Urine UA NEG (NEG); Leukocyte Esterase Urine NEG (NEG); Nitrite Urine NEG (NEG); PH 5.5 (5.0-8.0); Specific Gravity - Urine 1.015 (1.005-1.025); Urine Blood NEG (NEG); Urine Ketones NEG (NEG); Urine Protein TRACE MG/DL (NEG-TRACE)
[2021-06-09 21:46] LABS: Troponin-I High Sensitivity 1852.6 ng/L (<3.5-17.0)
[2021-06-09 22:00] LABS: VBG Base Excess -2.1 mmol/L; VBG HCO3 26 mmol/L (22-26); VBG pCO2 60 mmHg; VBG pH 7.24 (7.32-7.43); VBG pO2 139 mmHg
[2021-06-09 22:02] LABS: Venous Blood Gas Refer to POC result
--- NOTE | 2021-06-09 22:02 | PC.NURSE ---
provider at bedside to place central line. pt fighting against vent/line placement. per ICU provider increase propofol to 30 mcg/kg/min
[2021-06-09] MEDS: Aspirin 300 MG SUPP.RECT PR (22:26)
--- NOTE | 2021-06-09 22:26 | W.PM.CCHP ---
Procedures Date of Service Date of Service: 06/09/21 Central Line Placement Left IJ: Central Line Comments: venous access Consent for Procedure: Emergent-no informed consent obtained Time out performed: Yes Sterile Technique Used: Yes Patient placed on monitor/pulse ox: Yes MD prep: mask, gown and gloves Central line prep: Chlorhexidine scrub and sterile drapes applied Ultrasound used for placement: Yes Central line lumen inserted: triple Post procedure: sutured in place, good blood return, all ports aspirated, flushed, capped and sterile dressing applied Post procedure x-ray: tip of catheter in good position and no pneumothorax seen Patient tolerated procedure: well and no complications Complications: none
--- NOTE | 2021-06-09 22:38 | PC.NURSE ---
nurse to nurse report given to Mere KIRK in ICU
--- NOTE | 2021-06-09 23:10 | PM.CCHP ---
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 she was brought to the emergency department where her oxygen saturation was in the mid 80s. patient was complaining of shortness of breath on slightly swollen length, more than her normal. Patient also told the emergency department that she had been using her inhaler but it did not seem to be working like it usually does. While in the emergency department, the pt was found to be wheezing, pt was tachycardic in the 120-130's, she received Solu-Medrol, Xopenex and 1 dose IV Lasix 40 mg. Patient was placed on 6 L nasal cannula and her oxygen saturation went up to 90-92%. Labs revealed new onset CHF, NSTEMI and COVID positive; WBC 15.0, PT 13.4, INR 1.2, trop 2231.0, BNP 836, Covid+. chest x-ray showed possible consolidation, patient was given azithromycin and ceftriaxone. Patient was going to be [place] [facility] [place] but while in the emergency department, she became significantly short of breath, then altered and her oxygen saturation dropped to the low 80s on 15 L non-rebreather. Patient kept repeating off the mask and would not leave it on per the pt's nurse. Patient had to be emergently intubated. patient placed on propofol which caused the patient's blood pressure to drop so we added Levophed. Low blood pressures were not due to sepsis. Both Dr. Severino and I spoke with Dr. Dobson who requested a posterior EKG to rule out a posterior STEMI, the EKG showed no signs of a posterior STEMI. Second troponin came back as lower than the 1st, 1852.6. Lactic acid is 1.6, VBG slightly acidic, will increase RR. Placed TLC. Patient be transferred to the ICU for care. Review of Systems Review of Systems: Yes unobtainable due to endotracheal tube PMFSH Past Medical History Medical History CAD (coronary artery disease) COPD (chronic obstructive pulmonary disease) Greater trochanteric bursitis Hypertension Myocardial infarct, old Shoulder bursitis Family History Family History Father No problems noted. Mother No problems noted. Surgical History Surgical History History of facial surgery History of surgical procedure on eye proper using laser History of toe surgery Social History Social History Alcohol intake: never Patient Tobacco Use Status: Current everyday Tobacco user Cigarettes Per Day: 20 Use of substances other than those prescribed or required for medical reasons: No Advance Directives: No Advance Directives Information Provided: No Meds Allergies Allergy/AdvReac Type Severity Reaction Status Date / Time prochlorperazine Allergy Intermediate SWELLING Verified 12/10/20 10:13 [From Compazine] Compazine Allergy Unknown Swelling Uncoded 10/28/20 10:14 Active Medications: Current Medications Heparin Sodium/Sodium Chloride () 25,000 unit in 250 mls @ 0 mls/hr IVCONT .Q0M EN; Protocol Last Admin: 06/09/21 20:19 Dose: 14 units/kg/hr, 9.6 mls/hr Documented by: Propofol (Diprivan) 1,000 mg in 100 mls @ 0 mls/hr IVCONT .Q0M EN; Protocol Last Titration: 06/09/21 22:02 Dose: 30 mcg/kg/min, 12.35 mls/hr Documented by: Norepinephrine Bitartrate (Levophed) 8 mg in 250 mls @ 0 mls/hr IVCONT .Q0M EN; Protocol Last Titration: 06/09/21 20:42 Dose: 0.06 mcg/kg/min, 7.72 mls/hr Documented by: Pharmacy Consult (Consult Rx Perform Med Rec) 1 each MISCELLANE ONCE PRN PRN Reason: Consult order Home Medications Medication Instructions Recorded Confirmed Last Taken Type acetaminophen 300 mg-codeine 30 mg 1 tab PO BID PRN 12/02/19 06/09/21 Unknown History tablet metoprolol succinate 100 mg 100 mg PO DAILY 12/02/19 06/09/21 Unknown History tablet,extended release 24 hr tiotropium bromide 18 mcg capsule 1 cap INHALATION DAILY 12/02/19 06/09/21 Unknown History with inhalation device budesonide-formoterol HFA 160 2 puff INHALATION BID 03/14/20 06/09/21 Unknown History mcg-4.5 mcg/actuation aerosol inhaler omeprazole 20 mg capsule,delayed 1 cap PO DAILY 06/09/21 06/09/21 Unknown History release Physical Exam Vital Signs: Vital Signs: Last Vital Signs Temp 97.9 F 06/09/21 16:51 Pulse 106 H 06/09/21 22:22 Resp 18 06/09/21 22:22 BP 125/70 06/09/21 22:22 Pulse Ox 95 06/09/21 22:22 BMI result Body Mass Index 26.8 Const: Other: Intubated and sedated HEENT: Head: Yes normal to inspection Eyes: General: appearance normal, both eyes and all related structures Neck: Neck: Yes normal visual inspection and Yes full ROM Resp: Auscultation: wheezes and diminished lung sounds Cardio: Rate: tachycardic Rhythm: regular rhythm Heart sounds: normal S1 and S2 GI: Inspection: Yes normal to inspection Palpation (GI): Soft to palpation and nontender Extrem: Right upper extremity: Extremity exam: right hand Details: ecchymosis Location: of the dorsal hand Left upper extremity: hand (ecchymosis on dorsal side extending to wrist) Right lower extremity: lower leg (variscosities) Details: pitting edema (variscosities) Details: 2+ Left lower extremity: lower leg (variscosities) Details: pitting edema Details: 2+ Results Labs CBC and Chem 7: 06/09/21 17:26 06/09/21 17:26 Labs: Laboratory Results - last 24 hr 06/09/21 06/09/21 06/09/21 17:26 17:26 17:26 MCV 95.4 MCH 30.6 MCHC 32.1 RDW 12.3 Plt Count 357 MPV 9.1 L Immature Gran % (Auto) 0.5 H Neut % (Auto) 69.4 Lymph % (Auto) 17.9 L [place] % (Auto) 10.0 Eos % (Auto) 1.7 Baso % (Auto) 0.5 Lymph # (Auto) 2.7 [place] # (Auto) 1.5 H Eos # (Auto) 0.3 Baso # (Auto) 0.1 Abs Immat Gran (auto) 0.07 H Absolute Neuts (auto) 10.4 H Absolute Nucleated RBC 0.000 Nucleated RBC % (auto) 0.0 PT INR aPTT Heparin Protocol VBG pH VBG pCO2 VBG pO2 VBG HCO3 VBG O2 Saturation VBG Base Excess Anion Gap 12 Estim Creat Clear Calc 42.1 Estimated GFR 53 Random Glucose 181 H Lactic Acid Calcium 9.3 D Troponin I High Sens 2231.0 H* B-Natriuretic Peptide 836 H Urine Color Urine Appearance Urine pH Ur Specific [place] Urine Protein Urine Glucose (UA) Urine Ketones Urine Blood Urine Nitrite Ur Leukocyte Esterase COVID-19 (DELFINO) PhotozeenID-Done In :60 Seconds 06/09/21 06/09/21 06/09/21 17:32 17:32 17:32 MCV MCH MCHC RDW Plt Count MPV Immature Gran % (Auto) Neut % (Auto) Lymph % (Auto) [place] % (Auto) Eos % (Auto) Baso % (Auto) Lymph # (Auto) [place] # (Auto) Eos # (Auto) Baso # (Auto) Abs Immat Gran (auto) Absolute Neuts (auto) Absolute Nucleated RBC Nucleated RBC % (auto) PT 13.4 H INR 1.2 H aPTT Heparin Protocol VBG pH VBG pCO2 VBG pO2 VBG HCO3 VBG O2 Saturation VBG Base Excess Anion Gap Estim Creat Clear Calc Estimated GFR Random Glucose Lactic Acid 1.6 Calcium Troponin I High Sens B-Natriuretic Peptide Urine Color Urine Appearance Urine pH Ur Specific [place] Urine Protein Urine Glucose (UA) Urine Ketones Urine Blood Urine Nitrite Ur Leukocyte Esterase COVID-19 (DELFINO) Positive A PhotozeenID-Done In :60 Seconds See Note 06/09/21 06/09/21 06/09/21 21:12 21:12 21:14 MCV MCH MCHC RDW Plt Count MPV Immature Gran % (Auto) Neut % (Auto) Lymph % (Auto) [place] % (Auto) Eos % (Auto) Baso % (Auto) Lymph # (Auto) [place] # (Auto) Eos # (Auto) Baso # (Auto) Abs Immat Gran (auto) Absolute Neuts (auto) Absolute Nucleated RBC Nucleated RBC % (auto) PT INR aPTT Heparin Protocol 96.6 H VBG pH 7.24 L VBG pCO2 60 VBG pO2 139 VBG HCO3 26 VBG O2 Saturation 98.0 VBG Base Excess -2.1 Anion Gap Estim Creat Clear Calc Estimated GFR Random Glucose Lactic Acid Calcium Troponin I High Sens 1852.6 H* B-Natriuretic Peptide Urine Color Urine Appearance Urine pH Ur Specific [place] Urine Protein Urine Glucose (UA) Urine Ketones Urine Blood Urine Nitrite Ur Leukocyte Esterase COVID-19 (DELFINO) COVID-19 Clin Com 06/09/21 21:28 MCV MCH MCHC RDW Plt Count MPV Immature Gran % (Auto) Neut % (Auto) Lymph % (Auto) [place] % (Auto) Eos % (Auto) Baso % (Auto) Lymph # (Auto) [place] # (Auto) Eos # (Auto) Baso # (Auto) Abs Immat Gran (auto) Absolute Neuts (auto) Absolute Nucleated RBC Nucleated RBC % (auto) PT INR aPTT Heparin Protocol VBG pH VBG pCO2 VBG pO2 VBG HCO3 VBG O2 Saturation VBG Base Excess Anion Gap Estim Creat Clear Calc Estimated GFR Random Glucose Lactic Acid Calcium Troponin I High Sens B-Natriuretic Peptide Urine Color YELLOW Urine Appearance CLEAR Urine pH 5.5 Ur Specific [place] 1.015 Urine Protein TRACE Urine Glucose (UA) NEG Urine Ketones NEG Urine Blood NEG Urine Nitrite NEG Ur Leukocyte Esterase NEG COVID-19 (DELFINO) COVID-19 Clin Com Imaging Radiologist's Impressions: Impressions Chest X-Ray 06/09/21 17:48 IMPRESSION: Pulmonary vascular congestion with bilateral pleural effusions. Bibasilar consolidation or atelectasis may be present as well. Chest CTA 06/09/21 21:22 IMPRESSION: Small pulmonary embolus seen to a left lower lobe pulmonary artery. New diffuse interstitial opacity. Although pulmonary edema could give this appearance, favor interstitial pneumonitis. There is left hilar lymphadenopathy measuring 2.0 x 1.4 cm, possibly reactive. Small bilateral pleural effusions with fluid trapped in the right major fissure. VTE: positive This critical result was discussed with Sherri PISANO by telephone at 06/09/2021 10:48 PM and it was ascertained that the content and urgency of the report was understood at the time of direct communication. 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
[2021-06-09] MEDS: Azithromycin 500 MG in 0.9 % Sodium Chloride 250 ML 125 MG IV (23:39)
[2021-06-09] MEDS: Aspirin Enteric Coated 325 MG TABLET.DR PO (23:39)
[2021-06-09] MEDS: cefTRIAXone sodium 1 GM in 0.9 % Sodium Chloride 50 ML IV (23:39)
[2021-06-09] MEDS: Ticagrelor 90 MG TABLET 180 MG PO (23:49)
--- NOTE | 2021-06-09 23:51 | W.PM.CCHP ---
Procedures Date of Service Date of Service: 06/09/21 <KEV Cabrera Last Filed: 06/10/21 00:07> Central Line Placement Left IJ: Central Line Comments: venous access <KEV Cabrera Last Filed: 06/10/21 00:07> Consent for Procedure: Emergent-no informed consent obtained <KEV Cabrera Last Filed: 06/10/21 00:07> Time out performed: Yes <KEV Cabrera Last Filed: 06/10/21 00:07> Sterile Technique Used: Yes <KEV Cabrera Last Filed: 06/10/21 00:07> Patient placed on monitor/pulse ox: Yes <KEV Cabrera Last Filed: 06/10/21 00:07> MD prep: mask and gown <KEV Cabrera Last Filed: 06/10/21 00:07> Central line prep: Chlorhexidine scrub and sterile drapes applied <Komal Malave PA-C - Last Filed: 06/10/21 00:07> Ultrasound used for placement: Yes <KEV Cabrera Last Filed: 06/10/21 00:07> Central line lumen inserted: triple <KEV Cabrera Last Filed: 06/10/21 00:07> Post procedure: sutured in place, good blood return, all ports aspirated, flushed, capped and sterile dressing applied <KEV Cabrera Last Filed: 06/10/21 00:07> Post procedure x-ray: tip of catheter in good position and no pneumothorax seen <KVE Cabrera Last Filed: 06/10/21 00:07> Patient tolerated procedure: well and no complications <KEV Cabrera Last Filed: 06/10/21 00:07> Complications: none <KEV Cabrera Last Filed: 06/10/21 00:07>
[2021-06-10] VITALS (21 sets, daily range): BP systolic 112–139; BP diastolic 59–80; PULSE 14–118; RESP 18–24; TEMP 34–37.8; O2SAT 93–97; BMI 27.9
[2021-06-10 00:47] LABS: PTT Heparin Drip 69.2 SEC (53-77.9)
[2021-06-10 00:55] LABS: VBG Base Excess -0.2 mmol/L; VBG HCO3 26 mmol/L (22-26); VBG pCO2 47 mmHg; VBG pH 7.34 (7.32-7.43); VBG pO2 61 mmHg
[2021-06-10 01:01] LABS: B Type Natriuretic Peptide 955 pg/mL (<100); Troponin-I High Sensitivity 2199.7 ng/L (<3.5-17.0)
[2021-06-10 01:19] LABS: Venous Blood Gas Refer to POC result
[2021-06-10 01:20] LABS: Alanine Aminotransferase 17 U/L (0-31); Albumin Level 3.4 g/dL (3.5-5.0); Alkaline Phosphatase 56 U/L (39-117); Anion Gap 16 (12-20); Aspartate Amino Transferase 35 U/L (5-31); Bilirubin Total 0.6 mg/dL (0.0-1.0); Blood Urea Nitrogen 17 mg/dL (9-16); Calcium 8.8 mg/dL (8.4-10.2); Carbon Dioxide 25 mmol/L (22-29); Chloride 102 mmol/L (96-108); Creatinine Clr Calc Pharmacy 39.7; Estimated Glomerular Filt Rate 47; Glucose Random 251 mg/dL (60-115); Potassium 4.3 mmol/L (3.3-5.1); Sodium 139 mmol/L (135-145)
--- NOTE | 2021-06-10 01:20 | ECG_ITS ---
Test Reason : POSTERIOR Blood Pressure : / mmHG Vent. Rate : 116 BPM Atrial Rate : 116 BPM P-R Int : 142 ms QRS Dur : 124 ms QT Int : 348 ms P-R-T Axes : 077 -52 119 degrees QTc Int : 483 ms Sinus tachycardia Left axis deviation Inferior infarct , age undetermined ST & T wave abnormality, consider anterolateral ischemia Abnormal ECG When compared with ECG of 09-JUN-2021 20:02, No significant change was found Referred By: Komal Malave Electronically Signed By:MEGHAN LEE MD
[2021-06-10 05:25] LABS: VBG Base Excess 1.5 mmol/L; VBG HCO3 27 mmol/L (22-26); VBG pCO2 47 mmHg; VBG pH 7.36 (7.32-7.43); VBG pO2 53 mmHg
[2021-06-10 05:27] LABS: Venous Blood Gas Refer to POC result
[2021-06-10 05:32] LABS: Basophils Percent Auto 0.1 % (0-2); Hematocrit 38.4 % (37.0-47.0); Hemoglobin 12.5 g/dl (12.0-16.0); Imm Gran Abs Auto 0.06 X10*3/uL (0.00-0.03); Imm Gran Pct Auto 0.5 % (0.0-0.4); Lymphocytes Absolute Auto 0.5 X10*3/uL (1.2-4.9); Lymphocytes Percent Auto 3.7 % (20-40); MANUAL DIFF FLAG SCAN; Mean Corpuscular HGB Conc 32.6 g/dl (31.0-35.0); Mean Corpuscular Hemoglobin 30.9 pg (27.0-33.0); Mean Corpuscular Volume 94.8 fL (80.0-98.0); Mean Platelet Volume 9.4 fL (9.4-12.3); Monocytes Absolute Auto 0.2 X10*3/uL (0.1-1.2); Monocytes Percent Auto 1.7 % (2-11); Platelet Count 361 X10*3/uL (160-400); Red Blood Count 4.05 X10*6/uL (4.20-5.50); Red Cell Distribution Width 12.3 % (11.0-16.0); SCAN SMEAR FLAG 1; White Blood Count 12.8 X10*3/uL (4.8-10.8)
[2021-06-10 05:41] LABS: PTT Heparin Drip 79.5 SEC (53-77.9)
[2021-06-10 05:55] LABS: B Type Natriuretic Peptide 1055 pg/mL (<100); Troponin-I High Sensitivity 2985.1 ng/L (<3.5-17.0)
[2021-06-10 05:55] LABS: Anion Gap 16 (12-20); Blood Urea Nitrogen 15 mg/dL (9-16); Calcium 8.6 mg/dL (8.4-10.2); Carbon Dioxide 25 mmol/L (22-29); Chloride 104 mmol/L (96-108); Creatinine Clr Calc Pharmacy 41.6; Estimated Glomerular Filt Rate 50; Glucose Random 230 mg/dL (60-115); Magnesium 1.4 mg/dL (1.6-2.6); Phosphorus 3.2 mg/dL (2.7-4.5); Sodium 141 mmol/L (135-145)
[2021-06-10 05:58] LABS: SLIDE REVIEW VERIFIED
[2021-06-10] MEDS: propofoL 1,000 MG/100 ML VIAL 16.46 MG IVCONT (06:00)
--- NOTE | 2021-06-10 06:42 | CA_ITS ---
Transthoracic Echocardiogram Patient (Last, First, Middle): Michelle Hunter K Gender: Female Date of : 1945 Age: 76 Procedure Date: 06/10/2021 Procedure Type: Transthoracic Echocardiogram Location: ICU Height: 160.02 cm Weight: 71.22 kg BSA: 1.74 m2 Heart Rate: bpm BP: 131 / 69 mmHg Physical Therapy Technician: Referring MD: Roberto Dobson MD Optical Effects Camera Operator: Deepak Gamino MD Symptoms: apical NH and Study Quality: Fair ECG Rhythm: SinusTachycardia Conclusions: - 1. Moderate to severe LV systolic dysfunction with LVEF of 30 35% with pseudonormal filling pattern with underlying multiple regional wall motion abnormality suggestive of ischemic cardiomyopathy 2. Moderately dilated left atrium 3. Moderate to severe aortic stenosis 4. [id number] mitral regurgitation 5. Normal calculated RV systolic pressure 6. No gross pericardial effusion Findings Left Ventricle Normal left ventricular cavity size. There is normal left ventricular wall thickness. The left ventricular systolic function is moderate to severely decreased. The visually estimated ejection fraction is between 30-35%. Spectral Doppler is indicative of a pseudonormal filling pattern. E/E prime ratio is >15, consistent with elevated filling pressures. Wall Motion Rest Echo Findings The apical septum and mid anteroseptal segments are hypokinetic. The inferoseptal wall, inferior wall, and apex segment are akinetic. All other scored wall segments showed normal motion. Right Ventricle Normal right ventricular cavity size and systolic function. Atria The left atrium is moderately dilated. There is no evidence of interatrial shunt. The right atrium is normal in size. Aortic Valve The aortic valve was not well visualized. There is moderate calcification of the aortic valve. There is moderate to severe aortic valve stenosis. The peak aortic gradient is 36 mmHg.The mean gradient is 20 mmHg. The aortic valve area is 0.98 cm2. There is no aortic valve regurgitation. Mitral Valve There is mild anterior and posterior mitral leaflet thickening. There is mild to moderate mitral valve regurgitation. There is no mitral valve stenosis. Pulmonic Valve The pulmonic valve was not well visualized. There is mild pulmonic valve regurgitation. Tricuspid Valve Normal right atrial pressure. There is no evidence of pulmonary hypertension. Great Vessels All visible segments of the aorta are normal in size. The pulmonary artery was not well visualized. Venous The inferior vena cava is normal in size and collapses greater than 50% with inspiration. Pericardium/Pleural There is no evidence of pericardial effusion. Prior Study Comparison Changes noted compared to prior study. aortic stenosis appears to have progressed Measurements 2D Linear Measurements IVSd: 0.91 0.6-0.9/0.6-1.0 cm LVIDd: 5.43 3.9-5.3/4.2-5.9 cm LVIDd Index: 3.12 2.4-3.2/2.2-3.1 cm/m2 LVIDs: 4.74 2.0-3.6 cm LVPWd: 1.03 0.7-1.1 cm Ao Root: 2.90 2.1-3.5 cm LA Diam: 3.30 2.7-3.8/3.0-4.0 cm LAIDs Index: 1.90 1.5-2.3 cm/m2 LV Mass: 250.16 67-162/88-224 g LV Mass Index: 143.77 43-95/49-115 g/m2 LVOT Diam: 2.00 3.0+(-)1.3 cm 2D Systolic Function EF 4C: 31.60 >55% EF 2C: 32.40 >55% EF BiP: 32.60 >55% Mitral Valve MV Pk E: 0.95 MV PK A: 0.87 MV Decel Time: 82.00 E/A: 1.10 E'Lateral: 9.25 E'Medial: 4.46 E/E' Med: 21.20 E/E' Lat: 10.20 PHT: 24.00 MVA PHT: 9.17 Decel [place]: 11.51 Aortic Valve AoV Pk [place]: 3.01 AoV Mn Addison: 2.11 AoV VTI: 0.53 AoV Pk Grad: 36.00 Aov Mn Grad: 20.00 BHAVANI Cont.VTI: 0.98 LVOT LVOT Pk [place]: 0.95 LVOT Mn [place]: 0.68 LVOT VTI: 0.17 LVOT Pk Grad: 4.00 LVOT Mn Grad: 2.00 LVOT Diam: 2.00 LVOT Area: 3.14 Diastolic Function MV Pk E: 0.95 MV Pk A: 0.87 E/A: 1.10 E'Medial: 4.46 E/E' Med: 21.20 E' Laterial: 9.25 E/E' Lat: 10.20 Right Ventricle TAPSE (mm): 30.00 TVS' [place]: 11.00 Tricuspid Valve TR Pk [place]: 2.91 TR Pk Grad: 34.00 RA Press: 3.00 RVSP: 37.00 Great Vessels Aorta Ao Root-2D: 2.90 2.0-3.7 cm Sinus of Valsalva: 2.90 2.0-3.5 cm Ao Asc: 3.00 2.1-3.4 cm Pulmonary Valve PV Pk [place]: 1.21 Peak PV Grad: 6.00 Updated in Other Vendor System with Status of Final Deepak Gamino MD electronically signed on 06/10/2021 2:09:59 PM with status of Final
[2021-06-10] MEDS: Magnesium Sulfate/H2O 2 GM/50 ML PIGGYBACK IV (06:43)
[2021-06-10] MEDS: Albuterol/Iprat 2.5/0.5MG 3 ML AMPUL.NEB INHALE ×2 (07:50→11:41)
[2021-06-10] MEDS: Ticagrelor 90 MG TABLET PO (08:03)
[2021-06-10] MEDS: Aspirin 81 MG TAB.CHEW PO (08:03)
[2021-06-10] MEDS: dexAMETHasone sod phosphate 4 MG/ML VIAL 6 MG IVPUSH (08:03)
--- NOTE | 2021-06-10 09:30 | PC.NURSE ---
Skin assessment. Patient has scattered bruising on arms/legs and skin tears to bilateral arms. Xeroform applied covered with foam dressing.
[2021-06-10] MEDS: propofoL 1,000 MG/100 ML VIAL 20.58 MG IVCONT ×2 (10:47→14:28)
--- NOTE | 2021-06-10 11:51 | MHC.IC ---
Received Moderna vaccination on 04/23/20, 05/22/20 and 12/31/20
[2021-06-10] MEDS: Chlorhexidine Gluc Oral Rinse 15 ML MOUTHWASH BUCCAL (12:27)
[2021-06-10] MEDS: Famotidine/PF 20 MG/2 ML VIAL IVPUSH (12:27)
--- NOTE | 2021-06-10 12:41 | P.CONCA_ITS ---
History of Present Illness History of Present Illness Date of Service: 06/10/21 Requesting physician: Roberto Dobson Chief complaint: Pulmonary edema Narrative: Thank you for consulting us on Michelle in cardiology consultation today. She is a 76-year-old woman who is on mechanical ventilation cannot provide history. History was obtained from her sister Elva, who is her next of kin and closely involved in her medical situation. As per the sister she was gradually getting worse over the last 7-10 days and not feeling well and gradually getting more short of breath. Yesterday it and she got into respiratory distress and was choking and not able to breathe and sister drove her to the emergency room. Patient is very hesitant and did not want to come to the emergency room. In the emergency room she was markedly hypoxic and noted to be in pulmonary edema with EKG changes suggestive of anterior/anterolateral ST depression suggestive ischemia. Her initial troponin was 2000 and after the care EKG changes she was advised to be started on IV heparin. Initially patient wanted to sign out against medical advice however decompensated emergency room and went into marked respiratory distress at to be intubated and put on mechanical ventilation. She had brief episode hypertension was put on norepinephrine drip. Currently a blood pressure is stable. She has been diuresing. Her blood pressures improved and oxygen requirement has gone down. Her troponin has more last initially remain flat but now has gone up to 2900 this morning. EKG shows continuous ST depression. Bedside echocardiogram was done which shows reduced LV systolic function with LVEF of 30% with moderately severe aortic stenosis. Patient was tested positive for COVID but leading up to the hospitalization has had no symptoms of COVID no fever no chills no significant inflammatory markers. Reviewing her past medical history has history of hypertension, hyperlipidemia p eripheral vascular disease status post vascular surgery, COPD. As per the sister she has no prior documented history of any heart issues. Review of Systems Review of Systems: Yes unobtainable due to endotracheal tube PMFSH Past Medical History Medical History CAD (coronary artery disease) COPD (chronic obstructive pulmonary disease) Greater trochanteric bursitis Hypertension Myocardial infarct, old Shoulder bursitis Family History Family History Father No problems noted. Mother No problems noted. Surgical History Surgical History History of facial surgery History of surgical procedure on eye proper using laser History of toe surgery Social History Social History Household Members: Unknown / Unable to assess Housing: Unknown / Unable to assess Alcohol intake: never Patient Tobacco Use Status: Current someday Tobacco user Cigarettes Per Day: 20 Use of substances other than those prescribed or required for medical reasons: No Advance Directives: No Advance Directives Information Provided: No Meds Allergies Allergy/AdvReac Type Severity Reaction Status Date / Time prochlorperazine Allergy Intermediate SWELLING Verified 12/10/20 10:13 [From Compazine] Compazine Allergy Unknown Swelling Uncoded 10/28/20 10:14 Active Medications: Current Medications Albuterol/Ipratropium (Albuterol/Iprat 2.5/0.5mg 3 Ml Ampul.Neb) 3 ml INHALE RQ4H WHILE AWAKE [facility] Last Admin: 06/10/21 11:41 Dose: 3 ml Documented by: Aspirin (Aspirin 81 Mg Tab.Chew) 81 mg PO DAILY [facility] Last Admin: 06/10/21 08:03 Dose: 81 mg Documented by: Chlorhexidine Gluconate (Chlorhexidine Gluc Oral Rinse 15 Ml Mouthwash) 15 ml BUCCAL TID [facility] Last Admin: 06/10/21 12:27 Dose: 15 ml Documented by: Dexamethasone Sodium Phosphate (Dexamethasone Sod Phosphate 4 Mg/Ml Vial) 6 mg IVPUSH DAILY [facility] Stop: 06/20/21 08:59 Last Admin: 06/10/21 08:03 Dose: 6 mg Documented by: Famotidine (Famotidine/Pf 20 Mg/2 Ml Vial) 20 mg IVPUSH BID [facility] Last Admin: 06/10/21 12:27 Dose: 20 mg Documented by: Heparin Sodium (Porcine) (Heparin Sodium,Porcine 5,000 Unit/Ml Vial) 2,900 unit 40 unit/kg (2900 unit) IVPUSH PROTOCOL BOLUS PRN; Protocol PRN Reason: 40 unit/kg - Heparin Protocol Heparin Sodium (Porcine) (Heparin Sodium,Porcine 5,000 Unit/Ml Vial) 5,700 unit 80 unit/kg (5700 unit) IVPUSH PROTOCOL BOLUS PRN; Protocol PRN Reason: 80 unit/kg - Heparin Protocol Heparin Sodium/Sodium Chloride () 25,000 unit in 250 mls @ 0 mls/hr IVCONT .Q0M EN; Protocol Last Titration: 06/10/21 06:38 Dose: 12 units/kg/hr, 8.23 mls/hr Documented by: Propofol (Diprivan) 1,000 mg in 100 mls @ 0 mls/hr IVCONT .Q0M EN; Protocol Last Admin: 06/10/21 10:47 Dose: 50 mcg/kg/min, 20.58 mls/hr Documented by: Norepinephrine Bitartrate (Levophed) 8 mg in 250 mls @ 0 mls/hr IVCONT .Q0M EN; Protocol Last Titration: 06/09/21 20:42 Dose: 0.06 mcg/kg/min, 7.72 mls/hr Documented by: Lorazepam (Lorazepam 2 Mg/Ml Vial) 0.5 mg IVPUSH Q6H PRN PRN Reason: anxiety/restlessness Pharmacy Consult (Consult Rx Perform Med Rec) 1 each MISCELLANE ONCE PRN PRN Reason: Consult order Ticagrelor (Ticagrelor 90 Mg Tablet) 90 mg PO BID [facility] Last Admin: 06/10/21 08:03 Dose: 90 mg Documented by: Home Medications Medication Instructions Recorded Confirmed Last Taken Type acetaminophen 300 mg-codeine 30 mg 1 tab PO BID PRN 12/02/19 06/09/21 Unknown History tablet metoprolol succinate 100 mg 100 mg PO DAILY 12/02/19 06/09/21 Unknown History tablet,extended release 24 hr tiotropium bromide 18 mcg capsule 1 cap INHALATION DAILY 12/02/19 06/09/21 Unknown History with inhalation device budesonide-formoterol HFA 160 2 puff INHALATION BID 03/14/20 06/09/21 Unknown History mcg-4.5 mcg/actuation aerosol inhaler omeprazole 20 mg capsule,delayed 1 cap PO DAILY 06/09/21 06/09/21 Unknown History release Physical Exam Vital Signs: Vital Signs: Last Vital Signs Temp 99.3 F 06/10/21 12:00 Pulse 113 H 06/10/21 12:00 Resp 18 06/10/21 12:00 BP 125/71 06/10/21 12:00 Pulse Ox 97 06/10/21 12:00 BMI result Body Mass Index 27.9 Const: General: well developed Nutritional Appearance: average body habitus Limitations: other limitations (Intubated and sedated) HEENT: Head: Yes normocephalic and Yes atraumatic Neck: Neck: Yes trachea midline, Yes supple and Yes other (JVD not assessable) Carotids: delayed carotid upstroke Chest: Chest palpation & inspection: normal inspection of the chest Resp: Auscultation: no crackles, no wheezes and diminished lung sounds Cardio: Rate: regular rate and tachycardic Rhythm: regular rhythm Heart sounds: S1 normal heart sound present and Murmur heart sound present systolic late, decrescendo, crescendo and soft GI: Auscultation: normal bowel sounds Skin: General skin exam: no rashes or lesions noted Extrem: General: Yes no clubbing, cyanosis or edema Objective Labs and Meds Result diagrams: 06/10/21 05:22 06/10/21 05:23 Lab results: Laboratory Results - last 24 hr 06/09/21 06/09/21 06/09/21 17:26 17:26 17:26 WBC 15.0 H RBC 4.12 L Hgb 12.6 Hct 39.3 MCV 95.4 MCH 30.6 MCHC 32.1 RDW 12.3 Plt Count 357 MPV 9.1 L Immature Gran % (Auto) 0.5 H Neut % (Auto) 69.4 Lymph % (Auto) 17.9 L [place] % (Auto) 10.0 Eos % (Auto) 1.7 Baso % (Auto) 0.5 Lymph # (Auto) 2.7 [place] # (Auto) 1.5 H Eos # (Auto) 0.3 Baso # (Auto) 0.1 Abs Immat Gran (auto) 0.07 H Absolute Neuts (auto) 10.4 H Absolute Nucleated RBC 0.000 Nucleated RBC % (auto) 0.0 Smear Tech's Comments PT INR aPTT Heparin Protocol VBG pH VBG pCO2 VBG pO2 VBG HCO3 VBG O2 Saturation VBG Base Excess Sodium 138 Potassium 4.1 Chloride 103 Carbon Dioxide 27 Anion Gap 12 BUN 16 Creatinine 1.02 Estim Creat Clear Calc 42.1 Estimated GFR 53 Random Glucose 181 H Lactic Acid Calcium 9.3 D Phosphorus Magnesium Total Bilirubin AST ALT Alkaline Phosphatase Troponin I High Sens 2231.0 H* B-Natriuretic Peptide 836 H Total Protein Albumin Urine Color Urine Appearance Urine pH Ur Specific [place] Urine Protein Urine Glucose (UA) Urine Ketones Urine Blood Urine Nitrite Ur Leukocyte Esterase COVID-19 ([facility]) COVID-19 Clin Com 06/09/21 06/09/21 06/09/21 17:32 17:32 17:32 WBC RBC Hgb Hct MCV MCH MCHC RDW Plt Count MPV Immature Gran % (Auto) Neut % (Auto) Lymph % (Auto) [place] % (Auto) Eos % (Auto) Baso % (Auto) Lymph # (Auto) [place] # (Auto) Eos # (Auto) Baso # (Auto) Abs Immat Gran (auto) Absolute Neuts (auto) Absolute Nucleated RBC Nucleated RBC % (auto) Smear Tech's Comments PT 13.4 H INR 1.2 H aPTT Heparin Protocol VBG pH VBG pCO2 VBG pO2 VBG HCO3 VBG O2 Saturation VBG Base Excess Sodium Potassium Chloride Carbon Dioxide Anion Gap BUN Creatinine Estim Creat Clear Calc Estimated GFR Random Glucose Lactic Acid 1.6 Calcium Phosphorus Magnesium Total Bilirubin AST ALT Alkaline Phosphatase Troponin I High Sens B-Natriuretic Peptide Total Protein Albumin Urine Color Urine Appearance Urine pH Ur Specific [place] Urine Protein Urine Glucose (UA) Urine Ketones Urine Blood Urine Nitrite Ur Leukocyte Esterase COVID-19 ([facility]) Positive A COVID-19 Clin Com See Note 06/09/21 06/09/21 06/09/21 21:12 21:12 21:14 WBC RBC Hgb Hct MCV MCH MCHC RDW Plt Count MPV Immature Gran % (Auto) Neut % (Auto) Lymph % (Auto) [place] % (Auto) Eos % (Auto) Baso % (Auto) Lymph # (Auto) [place] # (Auto) Eos # (Auto) Baso # (Auto) Abs Immat Gran (auto) Absolute Neuts (auto) Absolute Nucleated RBC Nucleated RBC % (auto) Smear Tech's Comments PT INR aPTT Heparin Protocol 96.6 H VBG pH 7.24 L VBG pCO2 60 VBG pO2 139 VBG HCO3 26 VBG O2 Saturation 98.0 VBG Base Excess -2.1 Sodium Potassium Chloride Carbon Dioxide Anion Gap BUN Creatinine Estim Creat Clear Calc Estimated GFR Random Glucose Lactic Acid Calcium Phosphorus Magnesium Total Bilirubin AST ALT Alkaline Phosphatase Troponin I High Sens 1852.6 H* B-Natriuretic Peptide Total Protein Albumin Urine Color Urine Appearance Urine pH Ur Specific [place] Urine Protein Urine Glucose (UA) Urine Ketones Urine Blood Urine Nitrite Ur Leukocyte Esterase COVID-19 ([facility]) COVID-19 Clin Com 06/09/21 06/10/21 06/10/21 21:28 00:19 00:19 WBC RBC Hgb Hct MCV MCH MCHC RDW Plt Count MPV Immature Gran % (Auto) Neut % (Auto) Lymph % (Auto) [place] % (Auto) Eos % (Auto) Baso % (Auto) Lymph # (Auto) [place] # (Auto) Eos # (Auto) Baso # (Auto) Abs Immat Gran (auto) Absolute Neuts (auto) Absolute Nucleated RBC Nucleated RBC % (auto) Smear Tech's Comments PT INR aPTT Heparin Protocol VBG pH VBG pCO2 VBG pO2 VBG HCO3 VBG O2 Saturation VBG Base Excess Sodium 139 Potassium 4.3 Chloride 102 Carbon Dioxide 25 Anion Gap 16 BUN 17 H Creatinine 1.12 Estim Creat Clear Calc 39.7 Estimated GFR 47 Random Glucose 251 H Lactic Acid Calcium 8.8 Phosphorus Magnesium Total Bilirubin 0.6 AST 35 H D ALT 17 Alkaline Phosphatase 56 Troponin I High Sens 2199.7 H* B-Natriuretic Peptide 955 H Total Protein 6.0 L Albumin 3.4 L Urine Color YELLOW Urine Appearance CLEAR Urine pH 5.5 Ur Specific [place] 1.015 Urine Protein TRACE Urine Glucose (UA) NEG Urine Ketones NEG Urine Blood NEG Urine Nitrite NEG Ur Leukocyte Esterase NEG COVID-19 ([facility]) COVID-19 Clin Com 06/10/21 06/10/21 06/10/21 00:19 00:22 05:18 WBC RBC Hgb Hct MCV MCH MCHC RDW Plt Count MPV Immature Gran % (Auto) Neut % (Auto) Lymph % (Auto) [place] % (Auto) Eos % (Auto) Baso % (Auto) Lymph # (Auto) [place] # (Auto) Eos # (Auto) Baso # (Auto) Abs Immat Gran (auto) Absolute Neuts (auto) Absolute Nucleated RBC Nucleated RBC % (auto) Smear Tech's Comments PT INR aPTT Heparin Protocol 69.2 D VBG pH 7.34 7.36 VBG pCO2 47 47 VBG pO2 61 53 VBG HCO3 26 27 H VBG O2 Saturation 86.0 80.0 VBG Base Excess -0.2 1.5 Sodium Potassium Chloride Carbon Dioxide Anion Gap BUN Creatinine Estim Creat Clear Calc Estimated GFR Random Glucose Lactic Acid Calcium Phosphorus Magnesium Total Bilirubin AST ALT Alkaline Phosphatase Troponin I High Sens B-Natriuretic Peptide Total Protein Albumin Urine Color Urine Appearance Urine pH Ur Specific [place] Urine Protein Urine Glucose (UA) Urine Ketones Urine Blood Urine Nitrite Ur Leukocyte Esterase COVID-19 ([facility]) COVID-19 [employer] 06/10/21 06/10/21 06/10/21 05:22 05:22 05:22 WBC 12.8 H RBC 4.05 L Hgb 12.5 Hct 38.4 MCV 94.8 MCH 30.9 MCHC 32.6 RDW 12.3 Plt Count 361 MPV 9.4 Immature Gran % (Auto) 0.5 H Neut % (Auto) 94.0 H Lymph % (Auto) 3.7 L [place] % (Auto) 1.7 L Eos % (Auto) 0.0 Baso % (Auto) 0.1 Lymph # (Auto) 0.5 L [place] # (Auto) 0.2 Eos # (Auto) 0.0 Baso # (Auto) 0.0 Abs Immat Gran (auto) 0.06 H Absolute Neuts (auto) 12.0 H Absolute Nucleated RBC 0.000 Nucleated RBC % (auto) 0.0 Smear Tech's Comments VERIFIED PT INR aPTT Heparin Protocol 79.5 H VBG pH VBG pCO2 VBG pO2 VBG HCO3 VBG O2 Saturation VBG Base Excess Sodium Potassium Chloride Carbon Dioxide Anion Gap BUN Creatinine Estim Creat Clear Calc Estimated GFR Random Glucose Lactic Acid Calcium Phosphorus Magnesium Total Bilirubin AST ALT Alkaline Phosphatase Troponin I High Sens 2985.1 H* B-Natriuretic Peptide 1055 H Total Protein Albumin Urine Color Urine Appearance Urine pH Ur Specific [place] Urine Protein Urine Glucose (UA) Urine Ketones Urine Blood Urine Nitrite Ur Leukocyte Esterase COVID-19 ([facility]) COVID-19 [employer] 06/10/21 05:23 WBC RBC Hgb Hct MCV MCH MCHC RDW Plt Count MPV Immature Gran % (Auto) Neut % (Auto) Lymph % (Auto) [place] % (Auto) Eos % (Auto) Baso % (Auto) Lymph # (Auto) [place] # (Auto) Eos # (Auto) Baso # (Auto) Abs Immat Gran (auto) Absolute Neuts (auto) Absolute Nucleated RBC Nucleated RBC % (auto) Smear Tech's Comments PT INR aPTT Heparin Protocol VBG pH VBG pCO2 VBG pO2 VBG HCO3 VBG O2 Saturation VBG Base Excess Sodium 141 Potassium 4.0 Chloride 104 Carbon Dioxide 25 Anion Gap 16 BUN 15 Creatinine 1.07 Estim Creat Clear Calc 41.6 Estimated GFR 50 Random Glucose 230 H Lactic Acid Calcium 8.6 Phosphorus 3.2 Magnesium 1.4 L* Total Bilirubin AST ALT Alkaline Phosphatase Troponin I High Sens B-Natriuretic Peptide Total Protein Albumin Urine Color Urine Appearance Urine pH Ur Specific [place] Urine Protein Urine Glucose (UA) Urine Ketones Urine Blood Urine Nitrite Ur Leukocyte Esterase COVID-19 ([facility]) COVID-19 Clin Com Imaging Radiologist's impression: Impressions Chest X-Ray 06/09/21 17:48 IMPRESSION: Pulmonary vascular congestion with bilateral pleural effusions. Bibasilar consolidation or atelectasis may be present as well. Chest CTA 06/09/21 21:22 IMPRESSION: Small pulmonary embolus seen to a left lower lobe pulmonary artery. New diffuse interstitial opacity. Although pulmonary edema could give this appearance, favor interstitial pneumonitis. There is left hilar lymphadenopathy measuring 2.0 x 1.4 cm, possibly reactive. Small bilateral pleural effusions with fluid trapped in the right major fissure. VTE: positive This critical result was discussed with Sherri PISANO by telephone at 06/09/2021 10:48 PM and it was ascertained that the content and urgency of the report was understood at the time of direct communication. Chest X-Ray 06/09/21 22:40 IMPRESSION: Left IJ catheter placed without complication. ET tube 1 cm above the mateus and should be pulled back Chest X-Ray 06/10/21 00:05 IMPRESSION: Endotracheal tube tip approximately 4 cm above the mateus. Enteric tube courses into the stomach. Redemonstrated heterogeneous bibasilar opacities and small pleural effusions. Assessment and Plan (1) Acute respiratory failure: Status: Acute Patient present with acute respiratory failure secondary to acute cardiogenic pulmonary edema developing hypotension requiring vasopressor support with elevated troponin consistent underlying ischemic injury with echocardiogram showing reduced LV systolic function moderately severe aortic stenosis. Clinically improving with diuresis. Currently on IV heparin drip. On very low- dose of norepinephrine. She is getting aspirin. She was loaded with Brilinta. However given her tenuous cardiac situation and hemodynamics I think she should be best treated a tertiary care center. Discussed with patient's sister will agreeable for her to be transferred to [facility]. Discussed case with Dr. Mina Byers at [facility] as well as Dr. Dobson, about patient's management and Best Care to be done at [facility]. She went to require cardiac catheterization to evaluate coronary anatomy as hemodynamic assessment of the ever aortic valve and further treatment. High likelihood of underlying coronary artery disease including critical three-vessel or left main coronary artery disease. This was discussed with patient's sister. Continue IV heparin and aspirin. High-intensity statin therapy. Once patient is off vasopressor can start her on anti ischemic therapy with metoprolol. Also will start on nitro paste at that point time once blood pressure is stable. Critical nature of her cardiac condition was discussed in details. Will transfer to [facility]. Greater than 40 minutes was spent in managing her complex care. Procedures Date of Service Date of Service: 06/10/21
[2021-06-10 12:48] LABS: PTT Heparin Drip 49.6 SEC (53-77.9)
--- NOTE | 2021-06-10 12:56 | PM.DS ---
DS: Providers Provider Date of Service: 06/10/21 Date of admission: 06/09/21 22:22 Date of discharge: 06/10/21 Primary care physician: Manuelito Decker MD Admitting clinician: Roberto Dobson Attending physician on admission: Roberto Dobson Consults: 06/10/21 09:42 Consult to Cardiology Routine Consulting Provider: Deepak Gamino Reason for consultation: infarct Has provider been notified: Yes Attending physician on discharge: Roberto Dobson Discharging clinician: Roberto Dobson DS: Transfer Hospital Acceptance Reason for Transfer: Need tertiary care center for cardiac catheterization/revascularization/aortic valve replacement Name of Facility: [facility] Accepting Provider: Dr. Mina Byers DS: Diagnosis Discharge Diagnosis (1) Acute respiratory failure: Status: Acute DS: Summary Hospital Course Hospital Course: 76-year-old female with COPD and remote history of pulmonary embolism noted in her pulmonary office to have been significantly hypoxic and by blood gas was in acute hypoxic and hypercapnic respiratory failure and required urgent intubation upon arrival to emergency room and found to be COVID-19 positive but did develop ischemic pulmonary edema a peak troponin of 2000 which stayed flat in other words did not have a rising and descending curve but it was sort of a low flat repeated profile a of troponins all in the range of about 2000 with an evolving EKG showing diminished R-wave progression V1 to V3 initial lateral ST segment depression and then eventually T were of inversion across the precordium and bedside echo demonstrating akinesis of anterior septal and anterior 0 apical mendiola and a lack of compensatory hyper Ki niece this in fact there was relative hypokinesis of the inferior 0 posterolateral wall at best 30% ejection fraction and heavily calcified trileaflet valve peak velocity 3.5 m/sec probably consistent with a low-flow aortic valvular stenosis and aortic valve area of 0.89 sq cm for a valve area index of 0.3 Known to be hypertensive on lisinopril and metoprolol but here has required at minimal dose of norepinephrine at 0.06 mcg per kg per minute for current blood pressure of 120/65 with sinus tachycardia rate 120 compensated oxygen saturation lactic acid was negative so thank over not in cardiogenic shock urine output on ventilatory support has been good with a negative intake and output balance and CT scan of the chest consistent with interstitial pulmonary edema not with COVID-19 pneumonitis Once we decided to keep the patient overnight she was heparinized stat dose of aspirin and maintenance aspirin and dual antiplatelet therapy with ticagrelor Status at Discharge Cognitive/behavioral status at discharge: Sedated and intubated Time Spent with Patient Time attestation: Total time spent providing and/or coordinating discharge services: Discharge coordination time: Greater than 30 minutes Quality: Safe Use of Opioids Does Pt have an Active Cancer Diagnosis on the Problem List?: No Quality: Stroke Does the patient have a stroke diagnosis?: No Physical Exam Vital Signs: Vital Signs: Last Vital Signs Temp 99.3 F 06/10/21 12:00 Pulse 113 H 06/10/21 12:00 Resp 18 06/10/21 12:00 BP 125/71 06/10/21 12:00 Pulse Ox 97 06/10/21 12:00 BMI result Body Mass Index 27.9 Sedated and intubated FiO2 40% minute ventilation only 7.4 liters/minute in sinus tachycardia 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 Bedside echo demonstrating anterior 0 apical akinesis and otherwise diffuse hypokinesis with ejection fraction 30% and and despite low-flow state still has 3.5 m/sec velocity across the aortic valve Diminished bilateral breath sounds but no adventitious sounds no accessory muscle or diaphragm effort Abdomen benign Mild bilateral peripheral edema skin otherwise intact except for diffuse areas of subcutaneous and ecchymoses DS: Data Data Completed and Pending Labs on day of discharge: Laboratory Results - last 24 hr 06/09/21 06/09/21 06/09/21 17:26 17:26 17:26 WBC 15.0 H RBC 4.12 L Hgb 12.6 Hct 39.3 MCV 95.4 MCH 30.6 MCHC 32.1 RDW 12.3 Plt Count 357 MPV 9.1 L Immature Gran % (Auto) 0.5 H Neut % (Auto) 69.4 Lymph % (Auto) 17.9 L [place] % (Auto) 10.0 Eos % (Auto) 1.7 Baso % (Auto) 0.5 Lymph # (Auto) 2.7 [place] # (Auto) 1.5 H Eos # (Auto) 0.3 Baso # (Auto) 0.1 Abs Immat Gran (auto) 0.07 H Absolute Neuts (auto) 10.4 H Absolute Nucleated RBC 0.000 Nucleated RBC % (auto) 0.0 Smear Tech's Comments PT INR aPTT Heparin Protocol VBG pH VBG pCO2 VBG pO2 VBG HCO3 VBG O2 Saturation VBG Base Excess Sodium 138 Potassium 4.1 Chloride 103 Carbon Dioxide 27 Anion Gap 12 BUN 16 Creatinine 1.02 Estim Creat Clear Calc 42.1 Estimated GFR 53 Random Glucose 181 H Lactic Acid Calcium 9.3 D Phosphorus Magnesium Total Bilirubin AST ALT Alkaline Phosphatase Troponin I High Sens 2231.0 H* B-Natriuretic Peptide 836 H Total Protein Albumin Urine Color Urine Appearance Urine pH Ur Specific [place] Urine Protein Urine Glucose (UA) Urine Ketones Urine Blood Urine Nitrite Ur Leukocyte Esterase COVID-19 ([facility]) [facility]-[place] 06/09/21 06/09/21 06/09/21 17:32 17:32 17:32 WBC RBC Hgb Hct MCV MCH MCHC RDW Plt Count MPV Immature Gran % (Auto) Neut % (Auto) Lymph % (Auto) [place] % (Auto) Eos % (Auto) Baso % (Auto) Lymph # (Auto) [place] # (Auto) Eos # (Auto) Baso # (Auto) Abs Immat Gran (auto) Absolute Neuts (auto) Absolute Nucleated RBC Nucleated RBC % (auto) Smear Tech's Comments PT 13.4 H INR 1.2 H aPTT Heparin Protocol VBG pH VBG pCO2 VBG pO2 VBG HCO3 VBG O2 Saturation VBG Base Excess Sodium Potassium Chloride Carbon Dioxide Anion Gap BUN Creatinine Estim Creat Clear Calc Estimated GFR Random Glucose Lactic Acid 1.6 Calcium Phosphorus Magnesium Total Bilirubin AST ALT Alkaline Phosphatase Troponin I High Sens B-Natriuretic Peptide Total Protein Albumin Urine Color Urine Appearance Urine pH Ur Specific [place] Urine Protein Urine Glucose (UA) Urine Ketones Urine Blood Urine Nitrite Ur Leukocyte Esterase COVID-19 ([place]) Positive A COVID-19 [employer] See Note 06/09/21 06/09/21 06/09/21 21:12 21:12 21:14 WBC RBC Hgb Hct MCV MCH MCHC RDW Plt Count MPV Immature Gran % (Auto) Neut % (Auto) Lymph % (Auto) [place] % (Auto) Eos % (Auto) Baso % (Auto) Lymph # (Auto) [place] # (Auto) Eos # (Auto) Baso # (Auto) Abs Immat Gran (auto) Absolute Neuts (auto) Absolute Nucleated RBC Nucleated RBC % (auto) Smear Tech's Comments PT INR aPTT Heparin Protocol 96.6 H VBG pH 7.24 L VBG pCO2 60 VBG pO2 139 VBG HCO3 26 VBG O2 Saturation 98.0 VBG Base Excess -2.1 Sodium Potassium Chloride Carbon Dioxide Anion Gap BUN Creatinine Estim Creat Clear Calc Estimated GFR Random Glucose Lactic Acid Calcium Phosphorus Magnesium Total Bilirubin AST ALT Alkaline Phosphatase Troponin I High Sens 1852.6 H* B-Natriuretic Peptide Total Protein Albumin Urine Color Urine Appearance Urine pH Ur Specific [place] Urine Protein Urine Glucose (UA) Urine Ketones Urine Blood Urine Nitrite Ur Leukocyte Esterase COVID-19 ([facility]) COVID-19 [employer] 06/09/21 06/10/21 06/10/21 21:28 00:19 00:19 WBC RBC Hgb Hct MCV MCH MCHC RDW Plt Count MPV Immature Gran % (Auto) Neut % (Auto) Lymph % (Auto) [place] % (Auto) Eos % (Auto) Baso % (Auto) Lymph # (Auto) [place] # (Auto) Eos # (Auto) Baso # (Auto) Abs Immat Gran (auto) Absolute Neuts (auto) Absolute Nucleated RBC Nucleated RBC % (auto) Smear Tech's Comments PT INR aPTT Heparin Protocol VBG pH VBG pCO2 VBG pO2 VBG HCO3 VBG O2 Saturation VBG Base Excess Sodium 139 Potassium 4.3 Chloride 102 Carbon Dioxide 25 Anion Gap 16 BUN 17 H Creatinine 1.12 Estim Creat Clear Calc 39.7 Estimated GFR 47 Random Glucose 251 H Lactic Acid Calcium 8.8 Phosphorus Magnesium Total Bilirubin 0.6 AST 35 H D ALT 17 Alkaline Phosphatase 56 Troponin I High Sens 2199.7 H* B-Natriuretic Peptide 955 H Total Protein 6.0 L Albumin 3.4 L Urine Color YELLOW Urine Appearance CLEAR Urine pH 5.5 Ur Specific [place] 1.015 Urine Protein TRACE Urine Glucose (UA) NEG Urine Ketones NEG Urine Blood NEG Urine Nitrite NEG Ur Leukocyte Esterase NEG COVID-19 ([facility]) COVID-19 [employer] 06/10/21 06/10/21 06/10/21 00:19 00:22 05:18 WBC RBC Hgb Hct MCV MCH MCHC RDW Plt Count MPV Immature Gran % (Auto) Neut % (Auto) Lymph % (Auto) [place] % (Auto) Eos % (Auto) Baso % (Auto) Lymph # (Auto) [place] # (Auto) Eos # (Auto) Baso # (Auto) Abs Immat Gran (auto) Absolute Neuts (auto) Absolute Nucleated RBC Nucleated RBC % (auto) Smear Tech's Comments PT INR aPTT Heparin Protocol 69.2 D VBG pH 7.34 7.36 VBG pCO2 47 47 VBG pO2 61 53 VBG HCO3 26 27 H VBG O2 Saturation 86.0 80.0 VBG Base Excess -0.2 1.5 Sodium Potassium Chloride Carbon Dioxide Anion Gap BUN Creatinine Estim Creat Clear Calc Estimated GFR Random Glucose Lactic Acid Calcium Phosphorus Magnesium Total Bilirubin AST ALT Alkaline Phosphatase Troponin I High Sens B-Natriuretic Peptide Total Protein Albumin Urine Color Urine Appearance Urine pH Ur Specific [place] Urine Protein Urine Glucose (UA) Urine Ketones Urine Blood Urine Nitrite Ur Leukocyte Esterase COVID-19 ([place]) [employer] 06/10/21 06/10/21 06/10/21 05:22 05:22 05:22 WBC 12.8 H RBC 4.05 L Hgb 12.5 Hct 38.4 MCV 94.8 MCH 30.9 MCHC 32.6 RDW 12.3 Plt Count 361 MPV 9.4 Immature Gran % (Auto) 0.5 H Neut % (Auto) 94.0 H Lymph % (Auto) 3.7 L [place] % (Auto) 1.7 L Eos % (Auto) 0.0 Baso % (Auto) 0.1 Lymph # (Auto) 0.5 L [place] # (Auto) 0.2 Eos # (Auto) 0.0 Baso # (Auto) 0.0 Abs Immat Gran (auto) 0.06 H Absolute Neuts (auto) 12.0 H Absolute Nucleated RBC 0.000 Nucleated RBC % (auto) 0.0 Smear Tech's Comments VERIFIED PT INR aPTT Heparin Protocol 79.5 H VBG pH VBG pCO2 VBG pO2 VBG HCO3 VBG O2 Saturation VBG Base Excess Sodium Potassium Chloride Carbon Dioxide Anion Gap BUN Creatinine Estim Creat Clear Calc Estimated GFR Random Glucose Lactic Acid Calcium Phosphorus Magnesium Total Bilirubin AST ALT Alkaline Phosphatase Troponin I High Sens 2985.1 H* B-Natriuretic Peptide 1055 H Total Protein Albumin Urine Color Urine Appearance Urine pH Ur Specific [place] Urine Protein Urine Glucose (UA) Urine Ketones Urine Blood Urine Nitrite Ur Leukocyte Esterase COVID-19 ([place]) COVID-19 [employer] 06/10/21 06/10/21 05:23 12:20 WBC RBC Hgb Hct MCV MCH MCHC RDW Plt Count MPV Immature Gran % (Auto) Neut % (Auto) Lymph % (Auto) [place] % (Auto) Eos % (Auto) Baso % (Auto) Lymph # (Auto) [place] # (Auto) Eos # (Auto) Baso # (Auto) Abs Immat Gran (auto) Absolute Neuts (auto) Absolute Nucleated RBC Nucleated RBC % (auto) Smear Tech's Comments PT INR aPTT Heparin Protocol 49.6 L D VBG pH VBG pCO2 VBG pO2 VBG HCO3 VBG O2 Saturation VBG Base Excess Sodium 141 Potassium 4.0 Chloride 104 Carbon Dioxide 25 Anion Gap 16 BUN 15 Creatinine 1.07 Estim Creat Clear Calc 41.6 Estimated GFR 50 Random Glucose 230 H Lactic Acid Calcium 8.6 Phosphorus 3.2 Magnesium 1.4 L* Total Bilirubin AST ALT Alkaline Phosphatase Troponin I High Sens B-Natriuretic Peptide Total Protein Albumin Urine Color Urine Appearance Urine pH Ur Specific [place] Urine Protein Urine Glucose (UA) Urine Ketones Urine Blood Urine Nitrite Ur Leukocyte Esterase COVID-19 ([facility]) COVID-19 Clin Com Discharge Plan Discharge Anticipated Discharge Date/Time: 06/10/21 14:47 Patient Disposition: Xfer Acute Care Hospital Discharge Diagnosis: Acute hypoxemic and hypercapnic respiratory failure Acute anterior 0 apical myocardial infarction Critical aortic stenosis in a low-flow situation COVID-19 Ischemic pulmonary edema Referrals: Manuelito Decker MD [Primary Care Provider] - 1 Week Discharge Medications: No Action rosuvastatin 20 mg tablet 20 mg PO DAILY Qty: 90 8RF lisinopril 40 mg tablet 40 mg PO DAILY Qty: 90 8RF clopidogrel 75 mg tablet 75 mg PO DAILY Qty: 90 8RF lorazepam 0.5 mg tablet 0.5 mg PO BID-TID PRN (Reason: agitation) Qty: 90 5RF zolpidem 5 mg tablet 5 mg PO BEDTIME PRN (Reason: insomnia) Qty: 30 5RF fenofibrate 160 mg tablet 160 mg PO DAILY 90 Days Qty: 90 8RF alendronate [Fosamax] 70 mg tablet 70 mg PO QWEEK Qty: 13 3RF nifedipine 60 mg tablet extended release 60 mg PO DAILY Qty: 90 8RF omeprazole 20 mg capsule,delayed release(DR/EC) 1 cap PO DAILY 0RF budesonide-formoterol 160-4.5 mcg/actuation HFA aerosol inhaler 2 puff inhalation BID 0RF acetaminophen-codeine 300-30 mg tablet 1 tab PO BID PRN (Reason: Pain) 0RF Spiriva with HandiHaler 18 mcg capsule, w/inhalation device 1 cap inhalation DAILY 0RF metoprolol succinate 100 mg tablet extended release 24 hr 100 mg PO DAILY 0RF Discharge Orders: Discharge Order (Routine); Ordered 06/10/21 Ordered By: Roberto Dobson Activity on Discharge: Rest with bed elevated Stand Alone Forms: Patient Portal Discharge page Care Plan Goals: Transfer to the cardiac intensive care unit of [facility] for cardiac catheterization and possible revascularization and if warranted aortic valve replacement Health Concerns: COVID-19 diagnosis but no evidence of pneumonia Plan of Treatment: Management on ventilator in cardiac intensive care unit and then hopeful cardiac catheterization Assessment: Mental and and physical and functional status prior to this episode warrant aggressive treatment Patient currently stable on minimal dose of norepinephrine and low FiO2 of 40% with low minutes ventilatory requirement
--- NOTE | 2021-06-10 13:17 | MHC.CM.PN ---
CM did not completed assessment on pt as she was intubated and unable to participate. Pt will be transferred to [facility] for continued cardiac care. Pt's sister, Elva updated and aware of plan.
[2021-06-10] MEDS: Heparin Sodium,Porcine 5,000 UNIT/ML VIAL 2900 UNIT IVPUSH (13:18)
== END 2021-06-10 14:45 | disposition short-term general hospital (02) | DRG 208 ==
LOC: HO.ED 21:24 → HO.EDOVER 22:49 → HO.ICU 23:13
PROVIDERS: Emergency Medicine; Internal Medicine Cardiovascular Disease; Admitting Provider Physician Assistant; Emergency Provider Emergency Medicine Emergency Medical Services; PCP Internal Medicine; Visit Provider Physician Assistant
DX: I26.99 Other pulmonary embolism without acute cor pulmonale (principal); I21.4 Non-ST elevation (NSTEMI) myocardial infarction; U07.1 COVID-19; J96.22 Acute and chronic respiratory failure with hypercapnia; J96.21 Acute and chronic respiratory failure with hypoxia; I95.9 Hypotension, unspecified; I35.0 Nonrheumatic aortic (valve) stenosis; I25.10 Atherosclerotic heart disease of native coronary artery without angina pectoris; I25.2 Old myocardial infarction; F12.10 Cannabis abuse, uncomplicated; Z71.6 Tobacco abuse counseling; Z79.02 Long term (current) use of antithrombotics/antiplatelets; Z79.899 Other long term (current) drug therapy
CPT/HCPCS: 36415; 71045; 71275; 80048; 80053; 81003; 82803; 83605; 83735; 83880; 84100; 84484; 85025; 85610; 85730; 87040; 87635; 93005; 93306; 94002; 94003; 94640; 96365; 96366; 96367; 96375; 99285; 99291; 99292; C1758; J0456; J0696; J1100; J1940; J2930; J3475

== ENCOUNTER → 2021-07-03 13:18 | Outpatient (BNVA) | payer MEDICARE, MEDICAID, SELFPAY | PROVIDERS: PCP Internal Medicine; Visit Provider Orthopaedic Surgery | DX: M70.62 Trochanteric bursitis, left hip (principal); M75.52 Bursitis of left shoulder | CPT/HCPCS: 20610; 99212; J1100 ==